=== PATIENT | male | born 1955 | race Hispanic/Latino ===

== ENCOUNTER 2017-11-23 13:31 | Inpatient (IN) | payer MEDICARE, OTHER ==
[2017-11-23] MEDS ORDERED: MORPHINE IV ONE (14:48)
[2017-11-23] MEDS ORDERED: ZOFRAN IV ONE (14:48)
--- NOTE | 2017-11-23 15:02 | Emergency Department Report ---
HPI - General Chief Complaint: Fall Time Seen by Provider: 11/23/17 14:47 - HPI HPI: Room 23 The patient is a 62-year-old male presenting with a chief complaint of right hip pain after a slip and fall. The patient is currently at a hospital under 1013 for "severe agitation." Patient has history of schizophrenia. The patient states he slipped and fell and now has pain in the right hip. Patient denies pain elsewhere. Location: Right hip Duration: Constant today Quality: Pain Severity: Moderate Modifying factors: [see above] Context: [see above] Mode of transportation: [not driving] ED Past Medical Hx - Past Medical History Previous Medical History?: Yes Hx Hypertension: Yes Hx Psychiatric Treatment: Yes (schisophrenia) Hx COPD: Yes Additional medical history: [facility] patient - Family History Family history: no significant - Social History Smoking Status: Current Every Day Smoker Substance Use Type: None ED Review of Systems ROS: Stated complaint: FALL Other details as noted in HPI Musculoskeletal: arthralgia, myalgia Physical Exam - Physical Exam Vital Signs: Vital Signs 11/23/17 13:46 Temperature 98.4 F Pulse Rate 71 Respiratory 18 Rate Blood Pressure 112/54 Blood Pressure 112/54 [Right] O2 Sat by Pulse 100 Oximetry Physical Exam: GENERAL: The patient is well-developed well-nourished male lying on stretcher not appearing to be in acute distress. [] HEENT: Normocephalic. Atraumatic. Extraocular motions are intact. Patient has moist mucous membranes. NECK: Supple. Trachea midline CHEST/LUNGS: Clear to auscultation. There is no respiratory distress noted. HEART/CARDIOVASCULAR: Regular. There is no tachycardia. There is no gallop rub or murmur. 2+ right DP ABDOMEN: Abdomen is soft, nontender. Patient has normal bowel sounds. There is no abdominal distention. SKIN: There is no rash. There is no edema. There is no diaphoresis. NEURO: The patient is awake and alert. The patient is cooperative. The patient has normal speech MUSCULOSKELETAL: Right lower extremity is shortened and externally rotated ED Course Vital Signs 11/23/17 13:46 Temperature 98.4 F Pulse Rate 71 Respiratory 18 Rate Blood Pressure 112/54 Blood Pressure 112/54 [Right] O2 Sat by Pulse 100 Oximetry - Consultations Consultation #1: 11/23/17 15:04 Orthopedic surgery paged 11/23/17 15:[address] Page-requests hospitalist admit the patient ED Medical Decision Making - Lab Data Result diagrams: 11/23/17 14:54 - Radiology Data Radiology results: image reviewed (right hip x-ray) interpreted by me: Right hip [id number] hip fracture - Differential Diagnosis hip fracture Critical care attestation.: If time is entered above; I have spent that time in minutes in the direct care of this critically ill patient, excluding procedure time. ED Disposition Clinical Impression: Closed right hip fracture, Acute right hip pain Disposition: OP ADMIT IP TO THIS HOSP Is pt being admited?: Yes Does the pt Need Aspirin: No Condition: Fair Referrals: PRIMARY CARE,MD [Primary Care Provider] - 3-5 Days Time of Disposition: 15:08 (hospitalist notified (Dr Ibarra))
[2017-11-23 15:07] LABS: Basophils % (Auto) 0.1 % (0.0-1.8); Eosinophils % (Auto) 0.4 % (0.0-4.3); Hematocrit 39.4 % (35.5-45.6); Hemoglobin 13.1 gm/dl (11.8-15.2); Lymphocytes % (Auto) 11.5 % (13.4-35.0); Mean Corpuscular HGB Conc 33 % (32-34); Mean Corpuscular Hemoglobin 31 pg (28-32); Mean Corpuscular Volume 94 fl (84-94); Monocytes # (Auto) 0.7 K/mm3 (0.0-0.8); Platelet Count 230 K/mm3 (140-440); Red Blood Count 4.19 M/mm3 (3.65-5.03); Red Cell Distribution Width 15.6 % (13.2-15.2)
[2017-11-23 15:16] LABS: INR 0.98 (0.87-1.13)
[2017-11-23 15:17] LABS: Partial Thromboplastin Time 28.1 Sec. (24.2-36.6)
[2017-11-23 15:19] LABS: BUN/Creatinine Ratio 37; Blood Urea Nitrogen 26 mg/dL (9-20); Calcium 7.9 mg/dL (8.4-10.2); Hemolysis Index 4
--- NOTE | 2017-11-23 15:30 | XRay Report ---
RIGHT HIP, 2 views: History: Possible broken hip. Comminuted fracture through the intertrochanteric region of the proximal right femur is identified. Fracture lines course through the lesser and greater trochanter. The femoral head remains well seated within the right acetabulum. No pelvic fracture is identified. IMPRESSION: Comminuted right intertrochanteric femur fracture.
[2017-11-23] MEDS ORDERED: TYLENOL PO PRN (21:27)
[2017-11-23] MEDS ORDERED: AMBIEN PO PRN (21:27)
[2017-11-23] MEDS ORDERED: SODIUM CHLORIDE FLUSH SYRINGE 10 ML IV PRN (21:27)
[2017-11-23] MEDS ORDERED: ZOFRAN IV PRN (21:27)
[2017-11-23] MEDS ORDERED: MORPHINE IV PRN (21:27)
--- NOTE | 2017-11-23 21:27 | History and Physical Report ---
History of Present Illness Date of examination: 11/23/17 Date of admission: 11/23/17 Chief complaint: CC Rt Hip pain after fall History of present illness: [place] BAND The patient is a 62-year-old male presenting with a chief complaint of right hip pain after a slip and fall. The patient is currently at [facility] under 1013 for "severe agitation." Patient has history of schizophrenia. The patient states he slipped and fell and now has pain in the right hip. Patient denies pain elsewhere.Pain is 10/10 Past Medical History Previous Medical History?: Yes Hx Hypertension: Yes Hx Psychiatric Treatment: Yes (schisophrenia) Hx COPD: Yes Additional medical history: [place] Family History Family history: no significant fam hx Social History Smoking Status: Current Every Day Smoker Substance Use Type: None Review of Systems ROS: Stated complaint: FALL Other details as noted in HPI Musculoskeletal: arthralgia, myalgia 14 point review of systems done Medications and Allergies Allergies Allergy/AdvReac Type Severity Reaction Status Date / Time benztropine [From Cogentin] AdvReac Rash Verified 11/23/17 13:56 corticorelin ovine triflutate AdvReac Rash Verified 11/23/17 14:00 haloperidol [From Haldol] AdvReac Swelling Verified 11/23/17 14:00 magnesium AdvReac Rash Verified 11/23/17 13:56 Penicillins AdvReac Rash Verified 11/23/17 14:00 phenytoin [From Dilantin] AdvReac Rash Verified 11/23/17 14:00 procaine [From Novocain] AdvReac Rash Verified 11/23/17 14:00 Sulfa (Sulfonamide AdvReac Rash Verified 11/23/17 14:00 Antibiotics) Home Medications Medication Instructions Recorded Confirmed Last Taken Type Albuterol Sulfate [Ventolin Hfa] 2 puff IH Q6H PRN 11/23/17 11/23/17 11/22/17 History Aspirin [Adult Low Dose Aspirin EC] 81 mg PO DAILY 11/23/17 11/23/17 11/23/17 History Cholecalciferol Vit D3 [Vitamin D3] 2,000 unit PO QDAY 11/23/17 11/23/17 History Divalproex Sodium [Depakote] 500 mg PO BID 11/23/17 11/23/17 11/23/17 09:00 History Donepezil HCl 10 mg PO HS 11/23/17 11/23/17 11/22/17 History LORazepam [Ativan] 1 mg PO BID PRN 11/23/17 11/23/17 11/22/17 History Loperamide [Imodium] 2 mg PO Q6H PRN 11/23/17 11/23/17 Unknown History Loratadine [Claritin] 10 mg PO DAILY 11/23/17 11/23/17 Unknown History Mag Hydrox/Aluminum Hyd/Simeth 30 ml PO Q2H PRN 11/23/17 11/23/17 Unknown History [Antacid Anti-Gas Liquid] Magnesium Hydroxide [Milk of 30 ml PO DAILY PRN 11/23/17 11/23/17 Unknown History Magnesia] Megestrol [Megace] 400 mg PO QA 11/23/17 11/23/17 11/23/17 History QUEtiapine [SEROquel] 200 mg PO 11/23/17 11/23/17 11/22/17 History QUEtiapine [SEROquel] 200 mg PO 11/23/17 11/23/17 11/22/17 History Simvastatin [Zocor] 10 mg PO 11/23/17 11/23/17 11/22/17 History Tamsulosin [Flomax] 0.4 mg PO 11/23/17 11/23/17 11/22/17 History Tiotropium [place] [Spiriva] 18 mcg IH QA 11/23/17 11/23/17 11/23/17 History Trihexyphenidyl [Artane Tab] 2 mg PO BID 11/23/17 11/23/17 11/23/17 09:00 History Ziprasidone Mesylate [Geodon] 30 mg IM Q8H PRN 11/23/17 11/23/17 11/19/17 History cloNIDine [Catapres] 0.1 mg PO Q8H PRN 11/23/17 11/23/17 Unknown History diphenhydrAMINE [Benadryl CAP] 25 mg PO Q6HR PRN 11/23/17 11/23/17 Unknown History hydrOXYzine PAMOATE [Vistaril] 25 mg PO Q8H PRN 11/23/17 11/23/17 Unknown History traZODone [Desyrel] 25 mg PO HS PRN 11/23/17 11/23/17 11/22/17 History Exam - Constitutional Vitals: Temp Pulse Resp BP Pulse Ox 98.4 F 72 12 106/60 94 11/23/17 13:46 11/23/17 18:00 11/23/17 19:30 11/23/17 20:00 11/23/17 19:30 General appearance: Present: no acute distress, mild distress, well-nourished - EENT Eyes: Present: PERRL ENT: hearing intact, clear oral mucosa - Neck Neck: Present: supple, normal ROM - Respiratory Respiratory effort: normal Respiratory: bilateral: CTA - Cardiovascular Heart rate: 80 Rhythm: regular Heart Sounds: Present: S1 & S2. Absent: rub, click - Extremities Extremities: no ischemia, pulses intact, pulses symmetrical, No edema, abnormal (Rt hip decreasd ROM abducted and external rotation) Peripheral Pulses: within normal limits - Abdominal General gastrointestinal: Present: soft, non-tender, non-distended, normal bowel sounds Male genitourinary: Present: normal - Rectal Rectal Exam: deferred - Integumentary Integumentary: Present: clear, warm, dry - Musculoskeletal Musculoskeletal: gait normal, strength equal bilaterally - Psychiatric Psychiatric: appropriate mood/affect, intact judgment & insight - Neurologic Neurologic: CNII-XII intact, moves all extremities, other (Cannot ambulate b/c of severe Rt hip pain) - Allied Health Allied health notes reviewed: nursing, case management Results - Labs CBC & Chem 7: 11/24/17 05:23 11/24/17 05:23 Labs: Laboratory Last Values WBC 8.6 K/mm3 (4.5-11.0) 11/23/17 14:54 RBC 4.19 M/mm3 (3.65-5.03) 11/23/17 14:54 Hgb 13.1 gm/dl (11.8-15.2) 11/23/17 14:54 Hct 39.4 % (35.5-45.6) 11/23/17 14:54 MCV 94 fl (84-94) 11/23/17 14:54 MCH 31 pg (28-32) 11/23/17 14:54 MCHC 33 % (32-34) 11/23/17 14:54 RDW 15.6 % (13.2-15.2) H 11/23/17 14:54 Plt Count 230 K/mm3 (140-440) 11/23/17 14:54 Lymph % (Auto) 11.5 % (13.4-35.0) L 11/23/17 14:54 [place] % (Auto) 8.0 % (0.0-7.3) H 11/23/17 14:54 Eos % (Auto) 0.4 % (0.0-4.3) 11/23/17 14:54 Baso % (Auto) 0.1 % (0.0-1.8) 11/23/17 14:54 Lymph # 1.0 K/mm3 (1.2-5.4) L 11/23/17 14:54 [place] # 0.7 K/mm3 (0.0-0.8) 11/23/17 14:54 Eos # 0.0 K/mm3 (0.0-0.4) 11/23/17 14:54 Baso # 0.0 K/mm3 (0.0-0.1) 11/23/17 14:54 Seg Neutrophils % 80.0 % (40.0-70.0) H 11/23/17 14:54 Seg Neutrophils # 6.9 K/mm3 (1.8-7.7) 11/23/17 14:54 PT 13.5 Sec. (12.2-14.9) 11/23/17 14:54 INR 0.98 (0.87-1.13) 11/23/17 14:54 APTT 28.1 Sec. (24.2-36.6) 11/23/17 14:54 Sodium 135 mmol/L (137-145) L 11/23/17 14:54 Potassium 4.5 mmol/L (3.6-5.0) 11/23/17 14:54 Chloride 97.9 mmol/L (98-107) L 11/23/17 14:54 Carbon Dioxide 26 mmol/L (22-30) 11/23/17 14:54 Anion Gap 16 mmol/L 11/23/17 14:54 BUN 26 mg/dL (9-20) H 11/23/17 14:54 Creatinine 0.7 mg/dL (0.8-1.5) L 11/23/17 14:54 Estimated GFR > 60 ml/min 11/23/17 14:54 BUN/Creatinine Ratio 37 % 11/23/17 14:54 Glucose 77 mg/dL (75-100) 11/23/17 14:54 Calcium 7.9 mg/dL (8.4-10.2) L 11/23/17 14:54 Blood Type A NEGATIVE 11/23/17 14:54 Antibody Screen Negative 11/23/17 14:54 - Imaging and Cardiology EKG: report reviewed Assessment and Plan Advance Directives: Yes (Full alma) Plan of care discussed with patient/family: Yes - Patient Problems (1) Closed right hip fracture Current Visit: Yes Status: Acute Qualifiers: Encounter type: initial encounter Qualified Code(s): S72.001A - Fracture of unspecified part of neck of right femur, initial encounter for closed fracture Plan to address problem: For ORIF tomorrow Pain control (2) COPD (chronic obstructive pulmonary disease) Current Visit: Yes Status: Chronic Qualifiers: COPD type: unspecified COPD Qualified Code(s): J44.9 - Chronic obstructive pulmonary disease, unspecified Plan to address problem: Cont Spiriva and Duonebs (3) HTN (hypertension) Current Visit: Yes Status: Chronic Qualifiers: Hypertension type: essential hypertension Qualified Code(s): I10 - Essential (primary) hypertension Plan to address problem: Not on any antihpertensives.Will add if BP runs high (4) BPH (benign prostatic hyperplasia) Current Visit: Yes Status: Chronic Qualifiers: Lower urinary tract symptom presence: symptoms present Plan to address problem: COnt Flomax (5) Malnutrition Current Visit: Yes Status: Chronic Qualifiers: Malnutrition type: protein-calorie malnutrition Protein-calorie malnutrition severity: severe Qualified Code(s): E43 - Unspecified severe protein-calorie malnutrition Plan to address problem: Cont Megace Dietitian consult for supplements (6) Schizophrenia Current Visit: Yes Status: Chronic Qualifiers: Schizophrenia type: unspecified Qualified Code(s): F20.9 - Schizophrenia, unspecified Plan to address problem: Cont antipsychotics (7) DVT prophylaxis Current Visit: Yes Status: Acute Plan to address problem: On Heparin
[2017-11-23] MEDS: SODIUM CHLORIDE FLUSH SYRINGE 10 ML IV SCH (22:01)
[2017-11-24] MEDS: NACL 0.9% 1000 ML 1,000 ML IV SCH ×2 (00:59→14:01)
[2017-11-24] MEDS: PERCOCET 5/325 PO PRN (01:19)
[2017-11-24 06:17] LABS: Basophils % (Auto) 0.1 % (0.0-1.8); Eosinophils % (Auto) 0.2 % (0.0-4.3); Hematocrit 38.7 % (35.5-45.6); Hemoglobin 13.3 gm/dl (11.8-15.2); Lymphocytes % (Auto) 11.9 % (13.4-35.0); Mean Corpuscular HGB Conc 34 % (32-34); Mean Corpuscular Hemoglobin 32 pg (28-32); Mean Corpuscular Volume 92 fl (84-94); Monocytes # (Auto) 0.9 K/mm3 (0.0-0.8); Monocytes % (Auto) 10.4 % (0.0-7.3); Platelet Count 187 K/mm3 (140-440); Red Blood Count 4.19 M/mm3 (3.65-5.03); Red Cell Distribution Width 15.3 % (13.2-15.2)
[2017-11-24 06:45] LABS: Alanine Aminotransferase 27 units/L (7-56); Albumin 3.2 g/dL (3.9-5); BUN/Creatinine Ratio 27; Blood Urea Nitrogen 16 mg/dL (9-20); Calcium 7.7 mg/dL (8.4-10.2); Hemolysis Index 11
[2017-11-24] MEDS ORDERED: PROAIR IH PRN (07:45)
[2017-11-24] MEDS ORDERED: CATAPRES PO PRN (08:30)
[2017-11-24] MEDS ORDERED: BENADRYL PO PRN (08:30)
[2017-11-24] MEDS ORDERED: PROVENTIL IH PRN (09:00)
[2017-11-24] MEDS ORDERED: IMODIUM PO PRN (09:00)
[2017-11-24] MEDS ORDERED: VISTARIL PO PRN (09:00)
--- NOTE | 2017-11-24 09:22 | Progress Note ---
Assessment and Plan Assessment and plan: Right intertrochanteric femur fracture. orthopedic surgeon consulted. Likely surgery tomorrow. Schizophrenia. patient is from [facility]. Continue 1013 status, 1:1 sitter Moderate to severe malnutrition. Dietary consult. Weight loss. Head lice. Permethrin, contact isolation. I discussed with ID Physician. Will consult ID Nurse DVT prophylaxis with Lovenox Discussed with his brother, Dr. Hawley, Physician. History Interval history: Patient with right femur fracture after fall, pain right hip Hospitalist Physical - Physical exam Narrative exam: Gen appearance: Not in acute distress, cachetic HEENT: Normocephalic, atraumatic Neck: supple, no JVD Lungs: Clear to auscultation bilaterally, no crackles , no wheeze Heart: S1 and S2 regular, no murmurs, rubs or gallop Abdomen: soft, non tender, non distended, normal bowel sounds Ext: Tender right hip, no edema, no clubbing, no cyanosis Neuro: Awake,alert, moves all extremities, Psych: has schizophrenia - Constitutional Vitals: Temp Pulse Resp BP Pulse Ox 97.3 F L 66 18 124/75 99 11/24/17 05:09 11/24/17 05:04 11/24/17 05:04 11/24/17 05:04 11/24/17 05:04 General appearance: Present: no acute distress Results - Labs CBC & Chem 7: 11/24/17 05:23 11/24/17 05:23 Labs: Laboratory Last Values WBC 8.3 K/mm3 (4.5-11.0) 11/24/17 05:23 RBC 4.19 M/mm3 (3.65-5.03) 11/24/17 05:23 Hgb 13.3 gm/dl (11.8-15.2) 11/24/17 05:23 Hct 38.7 % (35.5-45.6) 11/24/17 05:23 MCV 92 fl (84-94) 11/24/17 05:23 MCH 32 pg (28-32) 11/24/17 05:23 MCHC 34 % (32-34) 11/24/17 05:23 RDW 15.3 % (13.2-15.2) H 11/24/17 05:23 Plt Count 187 K/mm3 (140-440) 11/24/17 05:23 Lymph % (Auto) 11.9 % (13.4-35.0) L 11/24/17 05:23 [place] % (Auto) 10.4 % (0.0-7.3) H 11/24/17 05:23 Eos % (Auto) 0.2 % (0.0-4.3) 11/24/17 05:23 Baso % (Auto) 0.1 % (0.0-1.8) 11/24/17 05:23 Lymph # 1.0 K/mm3 (1.2-5.4) L 11/24/17 05:23 [place] # 0.9 K/mm3 (0.0-0.8) H 11/24/17 05:23 Eos # 0.0 K/mm3 (0.0-0.4) 11/24/17 05:23 Baso # 0.0 K/mm3 (0.0-0.1) 11/24/17 05:23 Seg Neutrophils % 77.4 % (40.0-70.0) H 11/24/17 05:23 Seg Neutrophils # 6.5 K/mm3 (1.8-7.7) 11/24/17 05:23 PT 13.5 Sec. (12.2-14.9) 11/23/17 14:54 INR 0.98 (0.87-1.13) 11/23/17 14:54 APTT 28.1 Sec. (24.2-36.6) 11/23/17 14:54 Sodium 134 mmol/L (137-145) L 11/24/17 05:23 Potassium 4.2 mmol/L (3.6-5.0) 11/24/17 05:23 Chloride 98.2 mmol/L (98-107) 11/24/17 05:23 Carbon Dioxide 23 mmol/L (22-30) 11/24/17 05:23 Anion Gap 17 mmol/L 11/24/17 05:23 BUN 16 mg/dL (9-20) 11/24/17 05:23 Creatinine 0.6 mg/dL (0.8-1.5) L 11/24/17 05:23 Estimated GFR > 60 ml/min 11/24/17 05:23 BUN/Creatinine Ratio 27 % 11/24/17 05:23 Glucose 94 mg/dL (75-100) 11/24/17 05:23 POC Glucose 106 (70-105) H 11/24/17 09:09 Calcium 7.7 mg/dL (8.4-10.2) L 11/24/17 05:23 Total Bilirubin 0.40 mg/dL (0.1-1.2) 11/24/17 05:23 AST 21 units/L (5-40) 11/24/17 05:23 ALT 27 units/L (7-56) 11/24/17 05:23 Alkaline Phosphatase 61 units/L (35-129) 11/24/17 05:23 Total Protein 5.4 g/dL (6.3-8.2) L 11/24/17 05:23 Albumin 3.2 g/dL (3.9-5) L 11/24/17 05:23 Albumin/Globulin Ratio 1.5 % 11/24/17 05:23 Blood Type A NEGATIVE 11/23/17 14:54 Antibody Screen Negative 11/23/17 14:54
[2017-11-24] MEDS ORDERED: GEODON IM PRN (10:00)
[2017-11-24] MEDS: CLARITIN PO SCH (10:24)
[2017-11-24] MEDS: LOVENOX SUB-Q SCH (10:24)
[2017-11-24] MEDS: SODIUM CHLORIDE FLUSH SYRINGE 10 ML IV SCH (10:29)
[2017-11-24] MEDS: ARTANE PO SCH ×2 (11:06→23:36)
[2017-11-24] MEDS: MEGACE PO SCH (11:07)
[2017-11-24] MEDS: SPIRIVA IH SCH (11:09)
--- NOTE | 2017-11-24 14:24 | Consultation ---
History of Present Illness - [facility] Consult date: 11/24/17 Consult reason: fracture History of present illness: 62-year-old male presenting with a chief complaint of right hip pain after a slip and fall. The patient is currently at [facility] under 1013 for "severe agitation." Patient has history of schizophrenia. The patient states he slipped and fell and now has pain in the right hip. Seen in our ED where xrays taken reveal displaced right intertrochanteric fracture right hip. Medications and Allergies Allergies Allergy/AdvReac Type Severity Reaction Status Date / Time benztropine [From Cogentin] AdvReac Rash Verified 11/23/17 13:56 corticorelin ovine triflutate AdvReac Rash Verified 11/23/17 14:00 haloperidol [From Haldol] AdvReac Swelling Verified 11/23/17 14:00 magnesium AdvReac Rash Verified 11/23/17 13:56 Penicillins AdvReac Rash Verified 11/23/17 14:00 phenytoin [From Dilantin] AdvReac Rash Verified 11/23/17 14:00 procaine [From Novocain] AdvReac Rash Verified 11/23/17 14:00 Sulfa (Sulfonamide AdvReac Rash Verified 11/23/17 14:00 Antibiotics) Home Medications Medication Instructions Recorded Confirmed Last Taken Type Albuterol Sulfate [Ventolin Hfa] 2 puff IH Q6H PRN 11/23/17 11/23/17 11/22/17 History Aspirin [Adult Low Dose Aspirin EC] 81 mg PO DAILY 11/23/17 11/23/17 11/23/17 History Cholecalciferol Vit D3 [Vitamin D3] 2,000 unit PO QDAY 11/23/17 11/23/17 History Divalproex Sodium [Depakote] 500 mg PO BID 11/23/17 11/23/17 11/23/17 09:00 History Donepezil HCl 10 mg PO HS 11/23/17 11/23/17 11/22/17 History LORazepam [Ativan] 1 mg PO BID PRN 11/23/17 11/23/17 11/22/17 History Loperamide [Imodium] 2 mg PO Q6H PRN 11/23/17 11/23/17 Unknown History Loratadine [Claritin] 10 mg PO DAILY 11/23/17 11/23/17 Unknown History Mag Hydrox/Aluminum Hyd/Simeth 30 ml PO Q2H PRN 11/23/17 11/23/17 Unknown History [Antacid Anti-Gas Liquid] Magnesium Hydroxide [Milk of 30 ml PO DAILY PRN 11/23/17 11/23/17 Unknown History Magnesia] Megestrol [Megace] 400 mg PO QAM 11/23/17 11/23/17 11/23/17 History QUEtiapine [SEROquel] 200 mg PO HS 11/23/17 11/23/17 11/22/17 History QUEtiapine [SEROquel] 200 mg PO HS 11/23/17 11/23/17 11/22/17 History Simvastatin [Zocor] 10 mg PO HS 11/23/17 11/23/17 11/22/17 History Tamsulosin [Flomax] 0.4 mg PO HS 11/23/17 11/23/17 11/22/17 History Tiotropium [place] [Spiriva] 18 mcg IH QA 11/23/17 11/23/17 11/23/17 History Trihexyphenidyl [Artane Tab] 2 mg PO BID 11/23/17 11/23/17 11/23/17 09:00 History Ziprasidone Mesylate [Geodon] 30 mg IM Q8H PRN 11/23/17 11/23/17 11/19/17 History cloNIDine [Catapres] 0.1 mg PO Q8H PRN 11/23/17 11/23/17 Unknown History diphenhydrAMINE [Benadryl CAP] 25 mg PO Q6HR PRN 11/23/17 11/23/17 Unknown History hydrOXYzine PAMOATE [Vistaril] 25 mg PO Q8H PRN 11/23/17 11/23/17 Unknown History traZODone [Desyrel] 25 mg PO HS PRN 11/23/17 11/23/17 11/22/17 History Active Meds: Active Medications Acetaminophen (Tylenol) 650 mg PO Q4H PRN PRN Reason: Pain MILD(1-3)/Fever >100.5/[place]OREDO Albuterol (Proventil) 2.5 mg IH Q4HRT PRN PRN Reason: Shortness Of Breath Clonidine HCl (Catapres) 0.1 mg PO Q8H PRN PRN Reason: Blood Pressure Diphenhydramine HCl (Benadryl) 25 mg PO Q6HR PRN PRN Reason: Extrapyramidal Effects Divalproex Sodium (Depakote Dr) 500 mg PO BID [facility] Last Admin: 11/24/17 10:24 Dose: 500 mg Donepezil HCl (Aricept) 10 mg PO HS [facility] Enoxaparin Sodium (Lovenox) 40 mg SUB-Q QDAY [facility] Last Admin: 11/24/17 10:24 Dose: 40 mg Hydromorphone HCl (Dilaudid) 0.5 mg IV Q3H PRN PRN Reason: Pain , Severe (7-10) Hydroxyzine Pamoate (Vistaril) 25 mg PO Q8H PRN PRN Reason: Anxiety Sodium Chloride (Nacl 0.9% 1000 Ml) 1,000 mls @ 100 mls/hr IV DIRECT [facility] Last Admin: 11/24/17 14:01 Dose: 100 mls/hr Loperamide HCl (Imodium) 2 mg PO Q6H PRN PRN Reason: Diarrhea Loratadine (Claritin) 10 mg PO DAILY [facility] Last Admin: 11/24/17 10:24 Dose: 10 mg Lorazepam (Ativan) 1 mg PO BID PRN PRN Reason: Anxiety Megestrol Acetate (Megace) 400 mg PO QAM [facility] Last Admin: 11/24/17 11:07 Dose: 400 mg Morphine Sulfate (Morphine) 2 mg IV Q4H PRN PRN Reason: Pain, Moderate (4-6) Ondansetron HCl (Zofran) 4 mg IV Q8H PRN PRN Reason: Nausea And Vomiting Oxycodone/Acetaminophen (Percocet 5/325) 1 tab PO Q6H PRN PRN Reason: Pain, Moderate (4-6) Last Admin: 11/24/17 01:19 Dose: 1 tab Quetiapine Fumarate (Seroquel) 200 mg PO HS [facility] Sodium Chloride (Sodium Chloride Flush Syringe 10 Ml) 10 ml IV BID [facility] Last Admin: 11/24/17 10:29 Dose: 10 ml Sodium Chloride (Sodium Chloride Flush Syringe 10 Ml) 10 ml IV PRN PRN PRN Reason: LINE FLUSH Tamsulosin HCl (Flomax) 0.4 mg PO [facility] Tiotropium [place] (Spiriva) 1 puff IH QAM [facility] Last Admin: 11/24/17 11:09 Dose: 1 puff Trazodone HCl (Desyrel) 25 mg PO HS PRN PRN Reason: Sleep Trihexyphenidyl HCl (Artane) 2 mg PO BID [facility] Last Admin: 11/24/17 11:06 Dose: 2 mg Ziprasidone (Geodon) 30 mg IM Q8H PRN PRN Reason: Agitation Zolpidem Tartrate (Ambien) 5 mg PO QHS PRN PRN Reason: Insomnia Last Admin: 11/24/17 01:19 Dose: 5 mg Physical Examination - Physical exam Narrative exam: right hip - tender at groin, decreased active ROM, shortened external rotated, good capillary Assessment and Plan Displaced right intertrochanteric fx right hip recommend operative fixation with Intramedullary nail, discussed treatment options with patient's brother, Maynor Hawley in [place] who agrees with our recommendations
[2017-11-24] MEDS ORDERED: ACTICIN TP ONE ×2 (18:00→22:00)
--- NOTE | 2017-11-24 18:34 | XRay Report ---
FINAL REPORT PROCEDURE: XR CHEST ROUTINE 2V TECHNIQUE: PA and lateral chest radiographs were obtained. CPT 26209 HISTORY: Preoperative. Hyponatremia. COMPARISON: No prior studies are available for comparison. FINDINGS: Heart: Normal. Mediastinum/Vessels: Normal. Lungs/Pleural space: Moderate hyperinflation and emphysema. Bony thorax: Left 8th-10th rib fractures. Mild osteopenia. Mild degenerative changes of the spine. Other: IMPRESSION: Moderate hyperinflation and emphysema.
[2017-11-24] MEDS ORDERED: DESYREL PO PRN (22:00)
[2017-11-24] MEDS: ARICEPT PO SCH (23:35)
[2017-11-24] MEDS: FLOMAX PO SCH (23:36)
[2017-11-24] MEDS: DILAUDID IV PRN (23:38)
[2017-11-25] MEDS: DILAUDID IV PRN (05:34)
[2017-11-25] MEDS: SODIUM CHLORIDE FLUSH SYRINGE 10 ML IV SCH ×3 (05:35→21:30)
--- NOTE | 2017-11-25 08:29 | Progress Note ---
Assessment and Plan Assessment and plan: Right intertrochanteric femur fracture. Orthopedic surgeon consulted. Surgery postponed to tomorrow because he is getting Permethrin for head lice. Schizophrenia. He is from [facility]. Continue 1013 status, 1:1 sitter Moderate to severe malnutrition. Dietary consult. Weight loss. Will need outpatient follow up. Head lice. Permethrin, contact isolation. I discussed with ID Physician. Will consult ID Nurse DVT prophylaxis with Lovenox Discussed with his brother, Dr. Hawley, Physician yesterday History Interval history: Patient with right femur fracture after fall, pain right hip Diagnosed with head lice yesterday Hospitalist Physical - Physical exam Narrative exam: Gen appearance: Not in acute distress, cachetic HEENT: Normocephalic, atraumatic Neck: supple, no JVD Lungs: Clear to auscultation bilaterally, no crackles , no wheeze Heart: S1 and S2 regular, no murmurs, rubs or gallop Abdomen: soft, non tender, non distended, normal bowel sounds Ext: Tender right hip, no edema, no clubbing, no cyanosis Neuro: Awake,alert, moves all extremities, Psych: has schizophrenia - Constitutional Vitals: Temp Pulse Resp BP Pulse Ox 97.9 F 91 H 18 148/81 100 11/25/17 07:46 11/25/17 07:46 11/25/17 07:46 11/25/17 07:46 11/25/17 07:46 General appearance: Present: no acute distress Results - Labs CBC & Chem 7: 11/24/17 05:23 11/24/17 05:23 Labs: Laboratory Last Values WBC 8.3 K/mm3 (4.5-11.0) 11/24/17 05:23 RBC 4.19 M/mm3 (3.65-5.03) 11/24/17 05:23 Hgb 13.3 gm/dl (11.8-15.2) 11/24/17 05:23 Hct 38.7 % (35.5-45.6) 11/24/17 05:23 MCV 92 fl (84-94) 11/24/17 05:23 MCH 32 pg (28-32) 11/24/17 05:23 MCHC 34 % (32-34) 11/24/17 05:23 RDW 15.3 % (13.2-15.2) H 11/24/17 05:23 Plt Count 187 K/mm3 (140-440) 11/24/17 05:23 Lymph % (Auto) 11.9 % (13.4-35.0) L 11/24/17 05:23 [place] % (Auto) 10.4 % (0.0-7.3) H 11/24/17 05:23 Eos % (Auto) 0.2 % (0.0-4.3) 11/24/17 05:23 Baso % (Auto) 0.1 % (0.0-1.8) 11/24/17 05:23 Lymph # 1.0 K/mm3 (1.2-5.4) L 11/24/17 05:23 [place] # 0.9 K/mm3 (0.0-0.8) H 11/24/17 05:23 Eos # 0.0 K/mm3 (0.0-0.4) 11/24/17 05:23 Baso # 0.0 K/mm3 (0.0-0.1) 11/24/17 05:23 Seg Neutrophils % 77.4 % (40.0-70.0) H 11/24/17 05:23 Seg Neutrophils # 6.5 K/mm3 (1.8-7.7) 11/24/17 05:23 PT 13.5 Sec. (12.2-14.9) 11/23/17 14:54 INR 0.98 (0.87-1.13) 11/23/17 14:54 APTT 28.1 Sec. (24.2-36.6) 11/23/17 14:54 Sodium 134 mmol/L (137-145) L 11/24/17 05:23 Potassium 4.2 mmol/L (3.6-5.0) 11/24/17 05:23 Chloride 98.2 mmol/L (98-107) 11/24/17 05:23 Carbon Dioxide 23 mmol/L (22-30) 11/24/17 05:23 Anion Gap 17 mmol/L 11/24/17 05:23 BUN 16 mg/dL (9-20) 11/24/17 05:23 Creatinine 0.6 mg/dL (0.8-1.5) L 11/24/17 05:23 Estimated GFR > 60 ml/min 11/24/17 05:23 BUN/Creatinine Ratio 27 % 11/24/17 05:23 Glucose 94 mg/dL (75-100) 11/24/17 05:23 POC Glucose 137 (70-105) H 11/24/17 12:22 Calcium 7.7 mg/dL (8.4-10.2) L 11/24/17 05:23 Total Bilirubin 0.40 mg/dL (0.1-1.2) 11/24/17 05:23 AST 21 units/L (5-40) 11/24/17 05:23 ALT 27 units/L (7-56) 11/24/17 05:23 Alkaline Phosphatase 61 units/L (35-129) 11/24/17 05:23 Total Protein 5.4 g/dL (6.3-8.2) L 11/24/17 05:23 Albumin 3.2 g/dL (3.9-5) L 11/24/17 05:23 Albumin/Globulin Ratio 1.5 % 11/24/17 05:23 Blood Type A NEGATIVE 11/23/17 14:54 Antibody Screen Negative 11/23/17 14:54
[2017-11-25] MEDS: SPIRIVA IH SCH (10:33)
[2017-11-25] MEDS: LOVENOX SUB-Q SCH (11:03)
[2017-11-25] MEDS: MEGACE PO SCH (11:03)
[2017-11-25] MEDS: ARTANE PO SCH ×2 (11:04→21:28)
[2017-11-25] MEDS: CLARITIN PO SCH (11:04)
[2017-11-25] MEDS: NACL 0.9% 1000 ML 1,000 ML IV SCH (14:30)
--- NOTE | 2017-11-25 14:38 | Anesthesia Consultation ---
Anesthesia Consult and Med Hx Date of service: 11/26/17 - Airway Anesthetic Teeth Evaluation: Good (Unable to asses pt not co-operating) ROM Head & Neck: Adequate (Unable to asses pt not co-operating) Mental/Hyoid Distance: Adequate (Unable to asses pt not co-operating) Mallampati Class: Class I (Unable to asses pt not co-operating) Intubation Access Assessment: Good - Pulmonary Exam CTA: Yes (Few Crackles noted on bilateral bases) - Cardiac Exam Cardiac Exam: No Murmur - Pre-Operative Health Status ASA Pre-Surgery Classification: ASA3 Proposed Anesthetic Plan: General - Pulmonary Hx Smoking: No Hx Asthma: No Hx Respiratory Symptoms: No SOB: No COPD: Yes Home Oxygen Therapy: No Hx Pneumonia: No Hx Sleep Apnea: No - Cardiovascular System Hx Hypertension: Yes Hx Heart Attack/AMI: No Hx Pacemaker: No Hx Internal Defibrillator: No - Central Nervous System Hx Seizures: No Hx Psychiatric Problems: Yes (Patient is not oriented X3) - Gastrointestinal Hx Ulcer: No Hx Gastroesophageal Reflux Disease: No - Endocrine Hx Renal Disease: No Hx End Stage Renal Disease: No Hx Cirrhosis: No Hx Liver Disease: No Hx Insulin Dependent Diabetes: No Hx Non-Insulin Dependent Diabetes: No Hx Thyroid Disease: No Hx Hypothyroidism: No Hx Hyperthyroidism: No - Hematic Hx Anemia: No Hx Sickle Cell Disease: No - Other Systems Hx Alcohol Use: No Hx Substance Use: No Hx Cancer: No Hx Obesity: No - Additional Comments Anesthesia Medical History Comments: PT is ASA III history of HTN, COPD, and Psychiatric schizophrenia, unable to do an airway assesment as patient is not oriented and cooperating. Patient is also currently being treated for head lice. Patient may require more than average anesthesia requirements granted his pyschiatric history. consent was obtained from Brother Dr Maynor [email or web address]
[2017-11-25] MEDS: FLOMAX PO SCH (21:28)
[2017-11-25] MEDS: ARICEPT PO SCH (21:28)
[2017-11-26] MEDS ORDERED: DILAUDID IV PRN (07:14)
--- NOTE | 2017-11-26 07:14 | Anesthesia Day of Surgery ---
Anesthesia Day of Surgery - Day of Surgery Patient Examined: Yes Patient H&P Reviewed: Yes Patient is NPO: Yes
[2017-11-26] MEDS ORDERED: SUBLIMAZE IV NR (07:30)
[2017-11-26] MEDS ORDERED: SUBLIMAZE ONE (07:44)
[2017-11-26] MEDS ORDERED: XYLOCAINE MPF 2% ONE (07:44)
[2017-11-26] MEDS ORDERED: DIPRIVAN 10 MG/ML IV ONE (07:45)
[2017-11-26] MEDS ORDERED: NACL 0.9% IR ONE (07:56)
[2017-11-26] MEDS ORDERED: VANCOMYCIN/NS 1 GM/250 ML 1 GM/250 ML BAG IV SCH (08:00)
[2017-11-26] MEDS ORDERED: VERSED ONE (08:01)
[2017-11-26] MEDS ORDERED: ePHEDrine SULFATE ONE (08:28)
[2017-11-26] MEDS ORDERED: NEO SYNEPHRINE/NS Syringe(OR USE) IV ONE (08:50)
[2017-11-26] MEDS ORDERED: ZEMURON IV ONE (08:50)
[2017-11-26] MEDS ORDERED: NACL 0.9% 100 ML ONE (09:12)
[2017-11-26] MEDS: SODIUM CHLORIDE FLUSH SYRINGE 10 ML IV SCH (10:06)
[2017-11-26] MEDS: SPIRIVA IH SCH (11:56)
[2017-11-26] MEDS: ARTANE PO SCH ×2 (11:56→22:12)
[2017-11-26] MEDS: MEGACE PO SCH (11:56)
[2017-11-26] MEDS: LOVENOX SUB-Q SCH (11:57)
[2017-11-26] MEDS: CLARITIN PO SCH (12:07)
--- NOTE | 2017-11-26 13:29 | Procedure Note ---
Date of procedure: 11/26/17 Pre-op diagnosis: displaced right intertrochanteric hip fracture Post-op diagnosis: same Procedure: Closed reduction insertion of intramedullary nail right femur Anesthesia: GETA Surgeon: JOSE BOGGS Estimated blood loss: 50-100ml Pathology: none Condition: stable Disposition: PACU
--- NOTE | 2017-11-26 13:31 | Post Anesthesia Evaluation ---
- Post Anesthesia Evaluation Patient Participated: Yes Airway Patent: Yes Stable Respiratory Function: Yes Nausea/Vomiting: No Temp > 96.8F: Yes Pain Manageable: Yes Adequeate Hydration: Yes Anesthesia Complications: No
--- NOTE | 2017-11-26 13:37 | Progress Note ---
Assessment and Plan Assessment and plan: Right intertrochanteric femur fracture. Orthopedic surgeon consulted. Surgery - intramedullary nail right femur done today by Dr. Page. Schizophrenia. He is from [facility]. Continue 1013 status, 1:1 sitter Moderate to severe malnutrition. Dietary consulted. Weight loss. Will need outpatient follow up. Lice. Permethrin. Contact isolation. I discussed with ID Physician. Also consulted ID Nurse DVT prophylaxis with Lovenox Discussed with his brother, Dr. Hawley, Physician few days ago. History Interval history: Patient with right femur fracture after fall, Had surgery today Diagnosed with lice Hospitalist Physical - Physical exam Narrative exam: Gen appearance: Not in acute distress, cachetic HEENT: Normocephalic, atraumatic Neck: supple, no JVD Lungs: Clear to auscultation bilaterally, no crackles , no wheeze Heart: S1 and S2 regular, no murmurs, rubs or gallop Abdomen: soft, non tender, non distended, normal bowel sounds Ext: Tender right hip, no edema, no clubbing, no cyanosis Neuro: Awake,alert, moves all extremities, Psych: Has schizophrenia - Constitutional Vitals: Temp Pulse Resp BP Pulse Ox 98.1 F 82 15 103/63 97 11/26/17 09:40 11/26/17 10:15 11/26/17 10:15 11/26/17 10:15 11/26/17 10:15 General appearance: Present: no acute distress Results - Labs CBC & Chem 7: 11/24/17 05:23 11/24/17 05:23 Labs: Laboratory Last Values WBC 8.3 K/mm3 (4.5-11.0) 11/24/17 05:23 RBC 4.19 M/mm3 (3.65-5.03) 11/24/17 05:23 Hgb 13.3 gm/dl (11.8-15.2) 11/24/17 05:23 Hct 38.7 % (35.5-45.6) 11/24/17 05:23 MCV 92 fl (84-94) 11/24/17 05:23 MCH 32 pg (28-32) 11/24/17 05:23 MCHC 34 % (32-34) 11/24/17 05:23 RDW 15.3 % (13.2-15.2) H 11/24/17 05:23 Plt Count 187 K/mm3 (140-440) 11/24/17 05:23 Lymph % (Auto) 11.9 % (13.4-35.0) L 11/24/17 05:23 [place] % (Auto) 10.4 % (0.0-7.3) H 11/24/17 05:23 Eos % (Auto) 0.2 % (0.0-4.3) 11/24/17 05:23 Baso % (Auto) 0.1 % (0.0-1.8) 11/24/17 05:23 Lymph # 1.0 K/mm3 (1.2-5.4) L 11/24/17 05:23 [place] # 0.9 K/mm3 (0.0-0.8) H 11/24/17 05:23 Eos # 0.0 K/mm3 (0.0-0.4) 11/24/17 05:23 Baso # 0.0 K/mm3 (0.0-0.1) 11/24/17 05:23 Seg Neutrophils % 77.4 % (40.0-70.0) H 11/24/17 05:23 Seg Neutrophils # 6.5 K/mm3 (1.8-7.7) 11/24/17 05:23 PT 13.5 Sec. (12.2-14.9) 11/23/17 14:54 INR 0.98 (0.87-1.13) 11/23/17 14:54 APTT 28.1 Sec. (24.2-36.6) 11/23/17 14:54 Sodium 134 mmol/L (137-145) L 11/24/17 05:23 Potassium 4.2 mmol/L (3.6-5.0) 11/24/17 05:23 Chloride 98.2 mmol/L (98-107) 11/24/17 05:23 Carbon Dioxide 23 mmol/L (22-30) 11/24/17 05:23 Anion Gap 17 mmol/L 11/24/17 05:23 BUN 16 mg/dL (9-20) 11/24/17 05:23 Creatinine 0.6 mg/dL (0.8-1.5) L 11/24/17 05:23 Estimated GFR > 60 ml/min 11/24/17 05:23 BUN/Creatinine Ratio 27 % 11/24/17 05:23 Glucose 94 mg/dL (75-100) 11/24/17 05:23 POC Glucose 137 (70-105) H 11/24/17 12:22 Calcium 7.7 mg/dL (8.4-10.2) L 11/24/17 05:23 Total Bilirubin 0.40 mg/dL (0.1-1.2) 11/24/17 05:23 AST 21 units/L (5-40) 11/24/17 05:23 ALT 27 units/L (7-56) 11/24/17 05:23 Alkaline Phosphatase 61 units/L (35-129) 11/24/17 05:23 Total Protein 5.4 g/dL (6.3-8.2) L 11/24/17 05:23 Albumin 3.2 g/dL (3.9-5) L 11/24/17 05:23 Albumin/Globulin Ratio 1.5 % 11/24/17 05:23 Blood Type A NEGATIVE 11/23/17 14:54 Antibody Screen Negative 11/23/17 14:54
--- NOTE | 2017-11-26 13:56 | XRay Report ---
UNILATERAL LEFT RIB RADIOGRAPHS INDICATION: Rib fractures on CXR. COMPARISON: 11/24/2017 CXR. FINDINGS: Frontal/oblique left rib radiographs, 2 images, suggests left eighth, ninth and questionably tenth rib subtle deformities, of indeterminate age, though possibly old. Clear imaged lungs. Cholecystectomy clips. Moderate to large left hemiabdomen/splenic flexure stool/constipation. CONCLUSION: Left lower rib deformities, of indeterminate age, though likely old, as described. Please correlate clinically and with more remote chest imaging, if available from an outside institution. Thank you for the opportunity to participate in this patient's care.
--- NOTE | 2017-11-26 15:18 | XRay Report ---
INTRAOPERATIVE RIGHT FEMUR RADIOGRAPHS INDICATION: Right femur fracture repair. COMPARISON: 11/23/2017. FINDINGS: Intraoperative fluoroscopic guidance provided. Fluoroscopy time 1.1 minute. 4 submitted images demonstrate right Zickel nail placement, anchored by a single distal threaded screw. Left femoral compression orthopedic screw and plate also again seen. CONCLUSION: Intraoperative fluoroscopic guidance provided for right intertrochanteric fracture stabilization, as described. Thank you for the opportunity to participate in this patient's care.
[2017-11-26] MEDS ORDERED: ACTICIN TP ONE (16:34)
[2017-11-26] MEDS ORDERED: MIRALAX 3350 PO PRN (18:49)
[2017-11-26] MEDS: ARICEPT PO SCH (22:11)
[2017-11-26] MEDS: FLOMAX PO SCH (22:12)
[2017-11-26] MEDS: COLACE PO SCH (22:12)
[2017-11-27] MEDS: SODIUM CHLORIDE FLUSH SYRINGE 10 ML IV SCH ×3 (04:54→21:33)
[2017-11-27] MEDS: CLARITIN PO SCH (09:50)
[2017-11-27] MEDS: MEGACE PO SCH (09:50)
[2017-11-27] MEDS: LOVENOX SUB-Q SCH (09:50)
[2017-11-27] MEDS: COLACE PO SCH ×2 (09:50→21:31)
[2017-11-27] MEDS: ARTANE PO SCH ×2 (09:51→21:31)
[2017-11-27] MEDS: NACL 0.9% 1000 ML 1,000 ML IV SCH ×2 (09:55→21:34)
[2017-11-27] MEDS: SPIRIVA IH SCH (10:24)
--- NOTE | 2017-11-27 11:35 | Progress Note ---
Assessment and Plan Assessment and plan: Right intertrochanteric femur fracture. Orthopedic surgeon consulted. Surgery - intramedullary nail right femur done by Dr. Page on 11/26/17. Schizophrenia. He is from [facility]. Continue 1013 status, 1:1 sitter Moderate to severe malnutrition. Dietary consulted. Weight loss. Will need outpatient follow up. Body Lice seen on hair on head, pubic hair, sheets. Permethrin. Contact isolation. I discussed with ID Physician. Also consulted ID Nurse DVT prophylaxis with Lovenox Discussed with his brother, Dr. Hawley, Physician few days ago. History Interval history: Patient with right femur fracture after fall, Had surgery 11/26 Diagnosed with lice Hospitalist Physical - Physical exam Narrative exam: Gen appearance: Not in acute distress, cachetic HEENT: Normocephalic, atraumatic Neck: supple, no JVD Lungs: Clear to auscultation bilaterally, no crackles , no wheeze Heart: S1 and S2 regular, no murmurs, rubs or gallop Abdomen: soft, non tender, non distended, normal bowel sounds Ext: Tender right hip,dressing over righthip, no edema, no clubbing, no cyanosis Neuro: Awake,alert, moves all extremities, Psych: Has schizophrenia - Constitutional Vitals: Temp Pulse Resp BP Pulse Ox 98.6 F 87 18 116/69 98 11/27/17 08:09 11/27/17 08:09 11/27/17 08:09 11/27/17 08:09 11/27/17 10:24 General appearance: Present: no acute distress Results - Labs CBC & Chem 7: 11/28/17 04:13 11/28/17 04:13 Labs: Laboratory Last Values WBC 8.3 K/mm3 (4.5-11.0) 11/24/17 05:23 RBC 4.19 M/mm3 (3.65-5.03) 11/24/17 05:23 Hgb 13.3 gm/dl (11.8-15.2) 11/24/17 05:23 Hct 38.7 % (35.5-45.6) 11/24/17 05:23 MCV 92 fl (84-94) 11/24/17 05:23 MCH 32 pg (28-32) 11/24/17 05:23 MCHC 34 % (32-34) 11/24/17 05:23 RDW 15.3 % (13.2-15.2) H 11/24/17 05:23 Plt Count 187 K/mm3 (140-440) 11/24/17 05:23 Lymph % (Auto) 11.9 % (13.4-35.0) L 11/24/17 05:23 [place] % (Auto) 10.4 % (0.0-7.3) H 11/24/17 05:23 Eos % (Auto) 0.2 % (0.0-4.3) 11/24/17 05:23 Baso % (Auto) 0.1 % (0.0-1.8) 11/24/17 05:23 Lymph # 1.0 K/mm3 (1.2-5.4) L 11/24/17 05:23 [place] # 0.9 K/mm3 (0.0-0.8) H 11/24/17 05:23 Eos # 0.0 K/mm3 (0.0-0.4) 11/24/17 05:23 Baso # 0.0 K/mm3 (0.0-0.1) 11/24/17 05:23 Seg Neutrophils % 77.4 % (40.0-70.0) H 11/24/17 05:23 Seg Neutrophils # 6.5 K/mm3 (1.8-7.7) 11/24/17 05:23 PT 13.5 Sec. (12.2-14.9) 11/23/17 14:54 INR 0.98 (0.87-1.13) 11/23/17 14:54 APTT 28.1 Sec. (24.2-36.6) 11/23/17 14:54 Sodium 134 mmol/L (137-145) L 11/24/17 05:23 Potassium 4.2 mmol/L (3.6-5.0) 11/24/17 05:23 Chloride 98.2 mmol/L (98-107) 11/24/17 05:23 Carbon Dioxide 23 mmol/L (22-30) 11/24/17 05:23 Anion Gap 17 mmol/L 11/24/17 05:23 BUN 16 mg/dL (9-20) 11/24/17 05:23 Creatinine 0.6 mg/dL (0.8-1.5) L 11/24/17 05:23 Estimated GFR > 60 ml/min 11/24/17 05:23 BUN/Creatinine Ratio 27 % 11/24/17 05:23 Glucose 94 mg/dL (75-100) 11/24/17 05:23 POC Glucose 137 (70-105) H 11/24/17 12:22 Calcium 7.7 mg/dL (8.4-10.2) L 11/24/17 05:23 Total Bilirubin 0.40 mg/dL (0.1-1.2) 11/24/17 05:23 AST 21 units/L (5-40) 11/24/17 05:23 ALT 27 units/L (7-56) 11/24/17 05:23 Alkaline Phosphatase 61 units/L (35-129) 11/24/17 05:23 Total Protein 5.4 g/dL (6.3-8.2) L 11/24/17 05:23 Albumin 3.2 g/dL (3.9-5) L 11/24/17 05:23 Albumin/Globulin Ratio 1.5 % 11/24/17 05:23 Blood Type A NEGATIVE 11/23/17 14:54 Antibody Screen Negative 11/23/17 14:54
[2017-11-27] MEDS: ARICEPT PO SCH (21:31)
[2017-11-27] MEDS: FLOMAX PO SCH (21:31)
[2017-11-27] MEDS: PERCOCET 5/325 PO PRN (21:31)
[2017-11-28 04:41] LABS: Hematocrit 29.7 % (35.5-45.6); Mean Corpuscular HGB Conc 34 % (32-34); Mean Corpuscular Hemoglobin 32 pg (28-32); Mean Corpuscular Volume 93 fl (84-94); Platelet Count 244 K/mm3 (140-440); Red Blood Count 3.19 M/mm3 (3.65-5.03); Red Cell Distribution Width 15.3 % (13.2-15.2)
[2017-11-28 04:57] LABS: BUN/Creatinine Ratio 32; Blood Urea Nitrogen 16 mg/dL (9-20); Calcium 7.2 mg/dL (8.4-10.2); Hemolysis Index 6
[2017-11-28] MEDS: SPIRIVA IH SCH (11:00)
[2017-11-28] MEDS: CLARITIN PO SCH (11:20)
[2017-11-28] MEDS: LOVENOX SUB-Q SCH (11:20)
[2017-11-28] MEDS: ARTANE PO SCH ×2 (11:22→22:15)
[2017-11-28] MEDS: COLACE PO SCH ×2 (11:25→22:15)
--- NOTE | 2017-11-28 12:31 | Progress Note ---
Assessment and Plan Assessment and plan: Right intertrochanteric femur fracture. Orthopedic surgeon consulted. Surgery - intramedullary nail right femur done by Dr. Page on 11/26/17. Pain is under control Schizophrenia. He is from [facility]. Continue 1013 status, 1:1 sitter Moderate to severe malnutrition. Dietary consulted. Weight loss. Will need outpatient follow up. Body Lice seen on hair on head, pubic hair, sheets. Permethrin. Contact isolation. I discussed with ID Physician. Also consulted ID Nurse DVT prophylaxis with Lovenox Discussed with his brother, Dr. Hawley, Physician few days ago. History Interval history: Patient with right femur fracture after fall, Had surgery 2 days ago on 11/26 Diagnosed with lice Hospitalist Physical - Physical exam Narrative exam: Gen appearance: Not in acute distress, cachetic HEENT: Normocephalic, atraumatic Neck: supple, no JVD Lungs: Clear to auscultation bilaterally, no crackles , no wheeze Heart: S1 and S2 regular, no murmurs, rubs or gallop Abdomen: soft, non tender, non distended, normal bowel sounds Ext: Tender right hip,dressing over right hip, no clubbing, no cyanosis Neuro: Awake,alert, moves all extremities, Psych: Has schizophrenia - Constitutional Vitals: Temp Pulse Resp BP Pulse Ox 98.1 F 106 H 16 98/64 92 11/28/17 08:00 11/28/17 11:06 11/28/17 11:06 11/28/17 08:00 11/28/17 08:00 General appearance: Present: no acute distress Results - Labs CBC & Chem 7: 11/28/17 04:13 11/28/17 04:13 Labs: Laboratory Last Values WBC 7.0 K/mm3 (4.5-11.0) 11/28/17 04:13 RBC 3.19 M/mm3 (3.65-5.03) L 11/28/17 04:13 Hgb 10.0 gm/dl (11.8-15.2) L 11/28/17 04:13 Hct 29.7 % (35.5-45.6) L 11/28/17 04:13 MCV 93 fl (84-94) 11/28/17 04:13 MCH 32 pg (28-32) 11/28/17 04:13 MCHC 34 % (32-34) 11/28/17 04:13 RDW 15.3 % (13.2-15.2) H 11/28/17 04:13 Plt Count 244 K/mm3 (140-440) 11/28/17 04:13 Lymph % (Auto) 11.9 % (13.4-35.0) L 11/24/17 05:23 [place] % (Auto) 10.4 % (0.0-7.3) H 11/24/17 05:23 Eos % (Auto) 0.2 % (0.0-4.3) 11/24/17 05:23 Baso % (Auto) 0.1 % (0.0-1.8) 11/24/17 05:23 Lymph # 1.0 K/mm3 (1.2-5.4) L 11/24/17 05:23 [place] # 0.9 K/mm3 (0.0-0.8) H 11/24/17 05:23 Eos # 0.0 K/mm3 (0.0-0.4) 11/24/17 05:23 Baso # 0.0 K/mm3 (0.0-0.1) 11/24/17 05:23 Seg Neutrophils % 77.4 % (40.0-70.0) H 11/24/17 05:23 Seg Neutrophils # 6.5 K/mm3 (1.8-7.7) 11/24/17 05:23 PT 13.5 Sec. (12.2-14.9) 11/23/17 14:54 INR 0.98 (0.87-1.13) 11/23/17 14:54 APTT 28.1 Sec. (24.2-36.6) 11/23/17 14:54 Sodium 137 mmol/L (137-145) 11/28/17 04:13 Potassium 4.0 mmol/L (3.6-5.0) 11/28/17 04:13 Chloride 103.9 mmol/L (98-107) 11/28/17 04:13 Carbon Dioxide 21 mmol/L (22-30) L 11/28/17 04:13 Anion Gap 16 mmol/L 11/28/17 04:13 BUN 16 mg/dL (9-20) 11/28/17 04:13 Creatinine 0.5 mg/dL (0.8-1.5) L 11/28/17 04:13 Estimated GFR > 60 ml/min 11/28/17 04:13 BUN/Creatinine Ratio 32 % 11/28/17 04:13 Glucose 102 mg/dL (75-100) H 11/28/17 04:13 POC Glucose 137 (70-105) H 11/24/17 12:22 Calcium 7.2 mg/dL (8.4-10.2) L 11/28/17 04:13 Total Bilirubin 0.40 mg/dL (0.1-1.2) 11/24/17 05:23 AST 21 units/L (5-40) 11/24/17 05:23 ALT 27 units/L (7-56) 11/24/17 05:23 Alkaline Phosphatase 61 units/L (35-129) 11/24/17 05:23 Total Protein 5.4 g/dL (6.3-8.2) L 11/24/17 05:23 Albumin 3.2 g/dL (3.9-5) L 11/24/17 05:23 Albumin/Globulin Ratio 1.5 % 11/24/17 05:23 Blood Type A NEGATIVE 11/23/17 14:54 Antibody Screen Negative 11/23/17 14:54
[2017-11-28] MEDS: MEGACE PO SCH (14:27)
[2017-11-28] MEDS: SODIUM CHLORIDE FLUSH SYRINGE 10 ML IV SCH ×2 (14:30→22:15)
[2017-11-28] MEDS: NACL 0.9% 1000 ML 1,000 ML IV SCH (18:00)
[2017-11-28] MEDS: ARICEPT PO SCH (22:14)
[2017-11-28] MEDS: FLOMAX PO SCH (22:14)
[2017-11-29 08:37] LABS: Hematocrit 31.5 % (35.5-45.6); Hemoglobin 10.7 gm/dl (11.8-15.2); Mean Corpuscular HGB Conc 34 % (32-34); Mean Corpuscular Hemoglobin 32 pg (28-32); Mean Corpuscular Volume 94 fl (84-94); Platelet Count 285 K/mm3 (140-440); Red Blood Count 3.37 M/mm3 (3.65-5.03); Red Cell Distribution Width 15.6 % (13.2-15.2)
[2017-11-29] MEDS: SPIRIVA IH SCH (09:08)
--- NOTE | 2017-11-29 11:25 | Progress Note ---
Assessment and Plan Assessment and plan: Right intertrochanteric femur fracture. Orthopedic surgeon consulted. Surgery - intramedullary nail right femur done by Dr. Page on 11/26/17. Pain is under control Physical therapy ordered Schizophrenia. He is from [facility]. Continue 1013 status, 1:1 sitter . Psych reconsulted Moderate to severe malnutrition. Dietary consulted. Weight loss. Will need outpatient follow up. Body Lice seen on hair on head, pubic hair, sheets. Permethrin. Contact isolation. I discussed with ID Physician. Also consulted ID Nurse DVT prophylaxis with Lovenox Discussed with his brother, Dr. Hawley, Physician few days ago. Discussed with case management. History Interval history: Patient with right femur fracture after fall, Had surgery 3 days ago on 11/26 Diagnosed with body lice, treated with permethrin Hospitalist Physical - Physical exam Narrative exam: Gen appearance: Not in acute distress, cachetic HEENT: Normocephalic, atraumatic Neck: supple, no JVD Lungs: Clear to auscultation bilaterally, no crackles , no wheeze Heart: S1 and S2 regular, no murmurs, rubs or gallop Abdomen: soft, non tender, non distended, normal bowel sounds Ext: Tender right hip,dressing over right hip, no clubbing, no cyanosis Neuro: Awake,alert, moves all extremities, Psych: Has schizophrenia - Constitutional Vitals: Temp Pulse Resp BP Pulse Ox 98.2 F 79 16 121/66 99 11/29/17 07:38 11/29/17 09:08 11/29/17 09:08 11/29/17 07:38 11/29/17 07:38 General appearance: Present: no acute distress Results - Labs CBC & Chem 7: 11/29/17 08:19 11/28/17 04:13 Labs: Laboratory Last Values WBC 7.4 K/mm3 (4.5-11.0) 11/29/17 08:19 RBC 3.37 M/mm3 (3.65-5.03) L 11/29/17 08:19 Hgb 10.7 gm/dl (11.8-15.2) L 11/29/17 08:19 Hct 31.5 % (35.5-45.6) L 11/29/17 08:19 MCV 94 fl (84-94) 11/29/17 08:19 MCH 32 pg (28-32) 11/29/17 08:19 MCHC 34 % (32-34) 11/29/17 08:19 RDW 15.6 % (13.2-15.2) H 11/29/17 08:19 Plt Count 285 K/mm3 (140-440) 11/29/17 08:19 Lymph % (Auto) 11.9 % (13.4-35.0) L 11/24/17 05:23 [place] % (Auto) 10.4 % (0.0-7.3) H 11/24/17 05:23 Eos % (Auto) 0.2 % (0.0-4.3) 11/24/17 05:23 Baso % (Auto) 0.1 % (0.0-1.8) 11/24/17 05:23 Lymph # 1.0 K/mm3 (1.2-5.4) L 11/24/17 05:23 [place] # 0.9 K/mm3 (0.0-0.8) H 11/24/17 05:23 Eos # 0.0 K/mm3 (0.0-0.4) 11/24/17 05:23 Baso # 0.0 K/mm3 (0.0-0.1) 11/24/17 05:23 Seg Neutrophils % 77.4 % (40.0-70.0) H 11/24/17 05:23 Seg Neutrophils # 6.5 K/mm3 (1.8-7.7) 11/24/17 05:23 PT 13.5 Sec. (12.2-14.9) 11/23/17 14:54 INR 0.98 (0.87-1.13) 11/23/17 14:54 APTT 28.1 Sec. (24.2-36.6) 11/23/17 14:54 Sodium 137 mmol/L (137-145) 11/28/17 04:13 Potassium 4.0 mmol/L (3.6-5.0) 11/28/17 04:13 Chloride 103.9 mmol/L (98-107) 11/28/17 04:13 Carbon Dioxide 21 mmol/L (22-30) L 11/28/17 04:13 Anion Gap 16 mmol/L 11/28/17 04:13 BUN 16 mg/dL (9-20) 11/28/17 04:13 Creatinine 0.5 mg/dL (0.8-1.5) L 11/28/17 04:13 Estimated GFR > 60 ml/min 11/28/17 04:13 BUN/Creatinine Ratio 32 % 11/28/17 04:13 Glucose 102 mg/dL (75-100) H 11/28/17 04:13 POC Glucose 137 (70-105) H 11/24/17 12:22 Calcium 7.2 mg/dL (8.4-10.2) L 11/28/17 04:13 Total Bilirubin 0.40 mg/dL (0.1-1.2) 11/24/17 05:23 AST 21 units/L (5-40) 11/24/17 05:23 ALT 27 units/L (7-56) 11/24/17 05:23 Alkaline Phosphatase 61 units/L (35-129) 11/24/17 05:23 Total Protein 5.4 g/dL (6.3-8.2) L 11/24/17 05:23 Albumin 3.2 g/dL (3.9-5) L 11/24/17 05:23 Albumin/Globulin Ratio 1.5 % 11/24/17 05:23 Blood Type A NEGATIVE 11/23/17 14:54 Antibody Screen Negative 11/23/17 14:54
[2017-11-29] MEDS: MEGACE PO SCH (12:30)
[2017-11-29] MEDS: LOVENOX SUB-Q SCH (12:31)
[2017-11-29] MEDS: ARTANE PO SCH ×2 (12:31→23:52)
[2017-11-29] MEDS: COLACE PO SCH ×2 (12:34→23:56)
[2017-11-29] MEDS: CLARITIN PO SCH (12:36)
--- NOTE | 2017-11-29 13:28 | Progress Note ---
Assessment and Plan s/p IM nail right femur doing ok continue PT and observation Subjective Date of service: 11/29/17 Interval history: resting comfortably in bed, sitter in room... Objective Vital signs: Vital Signs - 12hr 11/29/17 11/29/17 11/29/17 04:10 07:38 09:08 Temperature 98.0 F 98.2 F Pulse Rate 94 H 95 H Pulse Rate [ 79 Anterior Bilateral Upper Lobe] Respiratory 20 Rate Respiratory 16 Rate [Anterior Bilateral Upper Lobe] Blood Pressure 125/77 121/66 [Left] O2 Sat by Pulse 95 99 Oximetry 11/29/17 11:30 Temperature 98.6 F Pulse Rate 90 Pulse Rate [ Anterior Bilateral Upper Lobe] Respiratory 18 Rate Respiratory Rate [Anterior Bilateral Upper Lobe] Blood Pressure 124/64 [Left] O2 Sat by Pulse 98 Oximetry Narrative Exam: right LE - moderate swelling, no erythema/drainage... - Labs CBC & BMP: 11/29/17 08:19 11/28/17 04:13 Labs: Abnormal lab results 11/29/17 Range/Units 08:19 RBC 3.37 L (3.65-5.03) M/mm3 Hgb 10.7 L (11.8-15.2) gm/dl Hct 31.5 L (35.5-45.6) % RDW 15.6 H (13.2-15.2) %
[2017-11-29] MEDS: SODIUM CHLORIDE FLUSH SYRINGE 10 ML IV SCH ×2 (18:33→22:00)
[2017-11-29] MEDS: NACL 0.9% 1000 ML 1,000 ML IV SCH (22:44)
[2017-11-29] MEDS: ARICEPT PO SCH (23:52)
[2017-11-29] MEDS: FLOMAX PO SCH (23:53)
[2017-11-30 06:40] LABS: Hematocrit 30.2 % (35.5-45.6); Hemoglobin 10.2 gm/dl (11.8-15.2); Mean Corpuscular HGB Conc 34 % (32-34); Mean Corpuscular Hemoglobin 32 pg (28-32); Mean Corpuscular Volume 94 fl (84-94); Platelet Count 319 K/mm3 (140-440); Red Blood Count 3.22 M/mm3 (3.65-5.03); Red Cell Distribution Width 15.4 % (13.2-15.2)
[2017-11-30 07:05] LABS: BUN/Creatinine Ratio 28; Blood Urea Nitrogen 14 mg/dL (9-20); Calcium 7.2 mg/dL (8.4-10.2); Hemolysis Index 0
[2017-11-30] MEDS: NACL 0.9% 1000 ML 1,000 ML IV SCH ×2 (08:39→21:57)
[2017-11-30] MEDS: SPIRIVA IH SCH (09:45)
[2017-11-30] MEDS: CLARITIN PO SCH (11:33)
[2017-11-30] MEDS: COLACE PO SCH ×2 (11:33→21:56)
[2017-11-30] MEDS: ARTANE PO SCH ×2 (11:35→21:56)
[2017-11-30] MEDS: LOVENOX SUB-Q SCH (11:36)
[2017-11-30] MEDS: MEGACE PO SCH (11:42)
[2017-11-30] MEDS: SODIUM CHLORIDE FLUSH SYRINGE 10 ML IV SCH ×2 (11:43→21:57)
--- NOTE | 2017-11-30 16:08 | Progress Note ---
Assessment and Plan /Right intertrochanteric femur fracture. Orthopedic surgeon consulted. Surgery -intramedullary nail right femur done by Dr. Page on 11/26/17. Pain is under control Physical therapy ordered /Schizophrenia. He is from [facility]. Continue 1013 status, 1:1 sitter . Psych reconsulted /Moderate to severe malnutrition. Dietary consulted. /Weight loss. Will need outpatient follow up. Follow dietary recommendations /Body Lice infestation seen on hair on head, pubic hair, sheets. Permethrin. Contact isolation. I discussed with ID Physician. Also consulted ID Nurse /DVT prophylaxis with Lovenox /Discussed with his brother, Dr. Hawley, Physician few days ago by prior attending. Discussed disposition with case management. Pending placement and PT eval Hospitalist Physical Gen appearance: Not in acute distress, cachetic HEENT: Normocephalic, atraumatic Neck: supple, no JVD Lungs: Clear to auscultation bilaterally, no crackles , no wheeze Heart: S1 and S2 regular, no murmurs, rubs or gallop Abdomen: soft, non tender, non distended, normal bowel sounds Ext: Tender right hip,dressing over right hip, no clubbing, no cyanosis Neuro: Awake,alert, moves all extremities, Psych: Cooperative, no insight for reality Subjective Date of service: 11/30/17 Interval history: Patient with right femur fracture after fall, Had surgery on 11/26 Diagnosed with body lice, treated with permethrin Patient with sitter at bedside Objective - Constitutional Vitals: Vital Signs - 12hr 11/30/17 11/30/17 08:00 09:45 Temperature 98.1 F Pulse Rate 67 Pulse Rate [ 80 Anterior Bilateral Upper Lobe] Respiratory 18 Rate Respiratory 16 Rate [Anterior Bilateral Upper Lobe] Blood Pressure 118/78 [Left] - Labs CBC & Chem 7: 11/30/17 06:24 11/30/17 06:24 Labs: Abnormal lab results 11/30/17 11/30/17 Range/Units 06:24 06:24 RBC 3.22 L (3.65-5.03) M/mm3 Hgb 10.2 L (11.8-15.2) gm/dl Hct 30.2 L (35.5-45.6) % RDW 15.4 H (13.2-15.2) % Creatinine 0.5 L (0.8-1.5) mg/dL Calcium 7.2 L (8.4-10.2) mg/dL
[2017-11-30] MEDS: PERCOCET 5/325 PO PRN (21:56)
[2017-11-30] MEDS: FLOMAX PO SCH (21:57)
[2017-11-30] MEDS: ARICEPT PO SCH (21:57)
[2017-12-01] MEDS: SPIRIVA IH SCH (09:40)
[2017-12-01] MEDS: MEGACE PO SCH (12:00)
[2017-12-01] MEDS: ARTANE PO SCH ×2 (12:00→22:39)
[2017-12-01] MEDS: LOVENOX SUB-Q SCH (12:01)
[2017-12-01] MEDS: CLARITIN PO SCH (12:01)
[2017-12-01] MEDS: COLACE PO SCH ×2 (12:01→22:39)
[2017-12-01] MEDS: SODIUM CHLORIDE FLUSH SYRINGE 10 ML IV SCH (12:02)
--- NOTE | 2017-12-01 14:46 | Progress Note ---
Subjective - Reason for Consult Consult date: 12/01/17 Reason for consult: Psychiatric Follow-up Evaluation - Chief Complaint Chief complaint: Grady is a 62 year old white male who was consulted for psychiatric services due to psychosis. He has a PPHx of Schizophrenia. Today, he states " I got a divorce. I got the voice. Do you see the souvenir you left me." Patient continues to be grossly psychotic. During the assessment patient is responding to internal stimuli. He continues to have selective compliance in regards to medication. Mental Status Exam - Vital signs Last Vital Signs Temp 97.4 F L 12/01/17 12:30 Pulse 105 H 12/01/17 12:30 Resp 16 12/01/17 12:30 BP 102/64 12/01/17 12:30 Pulse Ox 97 12/01/17 12:30 - Exam Narrative exam: Mental Status Exam General Appearance: Poorly groomed-unkempt Eye Contact: Intermittent Orientation: Alert and oriented x1 ( person) Attitude/Behavior: Uncooperative Sensorium: Distracted Psychomotor & Musculoskeletal Activity: WNL Mood: Anxious Affect: Inappropriate Speech/Language: Nonsensical Thought Processes: Disorganized Thought Content: Impoverished Perception: Unable to obtain Concentration/Attention: Impaired Suicidal Ideations/Plan: Unable to obtain Homicidal Ideations/Plan: Unable to obtain Assessment and Plan Impression: Patient is a 62 year old WM who presents with psychosis. He has a PPHx of Schizophrenia. Today, patient presents disorganized and nonsensical. Patient continues to answer questions inappropriately. Patient is refusing medications. DDx: Schizophrenia Plan: 1. Continue 1013 and reassess on 12/02/17. 2. Will encourage compliance with medication. 3. Will assist with placement in regards to inpatient services. 4. Will continue to monitor.
--- NOTE | 2017-12-01 14:46 | Consultation ---
History of Present Illness - Reason for Consult Consult date: 11/30/17 Reason for consult: Initial Psychiatric Evaluation - Chief Complaint Chief complaint: "Silvestre Mary." - History of Present Psychiatric Illness Grady is a 62 year old white male who was consulted for psychiatric services due to psychosis. He has a PPHx of Schizophrenia. During the initial psychiatric evaluation provider is unable to obtain information. Patient is grossly psychotic. Patient is exhibiting inappropriate hand gestures, such as throwing pillows and pretending/attempting to masturbate. Sitter is at bedside. Per sitter patient is unable to have conversation with others. Patient answer questions inappropriately. Allergies: See allergy list. Past Psychiatric History: Schizophrenia ( unknown) ; Unable to obtain Past Psychiatric Medication Trials: Unable to obtain History of Trauma/Abuse: Unable to obtain Social History: Unable to obtain Family History: Unable to obtain Medications and Allergies Allergies Allergy/AdvReac Type Severity Reaction Status Date / Time benztropine [From Cogentin] AdvReac Rash Verified 11/23/17 13:56 corticorelin ovine triflutate AdvReac Rash Verified 11/23/17 14:00 haloperidol [From Haldol] AdvReac Swelling Verified 11/23/17 14:00 magnesium AdvReac Rash Verified 11/23/17 13:56 Penicillins AdvReac Rash Verified 11/23/17 14:00 phenytoin [From Dilantin] AdvReac Rash Verified 11/23/17 14:00 procaine [From Novocain] AdvReac Rash Verified 11/23/17 14:00 Sulfa (Sulfonamide AdvReac Rash Verified 11/23/17 14:00 Antibiotics) Home Medications Medication Instructions Recorded Confirmed Last Taken Type Albuterol Sulfate [Ventolin Hfa] 2 puff IH Q6H PRN 11/23/17 11/23/17 11/22/17 History Aspirin [Adult Low Dose Aspirin EC] 81 mg PO DAILY 11/23/17 11/23/17 11/23/17 History Cholecalciferol Vit D3 [Vitamin D3] 2,000 unit PO QDAY 11/23/17 11/23/17 History Divalproex Sodium [Depakote] 500 mg PO BID 11/23/17 11/23/17 11/23/17 09:00 History Donepezil HCl 10 mg PO HS 11/23/17 11/23/17 11/22/17 History LORazepam [Ativan] 1 mg PO BID PRN 11/23/17 11/23/17 11/22/17 History Loperamide [Imodium] 2 mg PO Q6H PRN 11/23/17 11/23/17 Unknown History Loratadine [Claritin] 10 mg PO DAILY 11/23/17 11/23/17 Unknown History Mag Hydrox/Aluminum Hyd/Simeth 30 ml PO Q2H PRN 11/23/17 11/23/17 Unknown History [Antacid Anti-Gas Liquid] Magnesium Hydroxide [Milk of 30 ml PO DAILY PRN 11/23/17 11/23/17 Unknown History Magnesia] Megestrol [Megace] 400 mg PO QAM 11/23/17 11/23/17 11/23/17 History QUEtiapine [SEROquel] 200 mg PO HS 11/23/17 11/23/17 11/22/17 History QUEtiapine [SEROquel] 200 mg PO HS 11/23/17 11/23/17 11/22/17 History Simvastatin [Zocor] 10 mg PO HS 11/23/17 11/23/17 11/22/17 History Tamsulosin [Flomax] 0.4 mg PO HS 11/23/17 11/23/17 11/22/17 History Tiotropium Louann [Spiriva] 18 mcg IH QA 11/23/17 11/23/17 11/23/17 History Trihexyphenidyl [Artane Tab] 2 mg PO BID 11/23/17 11/23/17 11/23/17 09:00 History Ziprasidone Mesylate [Geodon] 30 mg IM Q8H PRN 11/23/17 11/23/17 11/19/17 History cloNIDine [Catapres] 0.1 mg PO Q8H PRN 11/23/17 11/23/17 Unknown History diphenhydrAMINE [Benadryl CAP] 25 mg PO Q6HR PRN 11/23/17 11/23/17 Unknown History hydrOXYzine PAMOATE [Vistaril] 25 mg PO Q8H PRN 11/23/17 11/23/17 Unknown History traZODone [Desyrel] 25 mg PO HS PRN 11/23/17 11/23/17 11/22/17 History Active Meds: Active Medications Acetaminophen (Tylenol) 650 mg PO Q4H PRN PRN Reason: Pain MILD(1-3)/Fever >100.5/LOREDO Last Admin: 11/29/17 12:32 Dose: 650 mg Albuterol (Proventil) 2.5 mg IH Q4HRT PRN PRN Reason: Shortness Of Breath Clonidine HCl (Catapres) 0.1 mg PO Q8H PRN PRN Reason: Blood Pressure Diphenhydramine HCl (Benadryl) 25 mg PO Q6HR PRN PRN Reason: Extrapyramidal Effects Last Admin: 11/24/17 23:35 Dose: 25 mg Divalproex Sodium (Depakote Dr) 500 mg PO BID [facility] Last Admin: 12/01/17 12:00 Dose: 500 mg Docusate Sodium (Colace) 100 mg PO BID [facility] Last Admin: 12/01/17 12:01 Dose: 100 mg Donepezil HCl (Aricept) 10 mg PO HS [facility] Last Admin: 11/30/17 21:57 Dose: 10 mg Enoxaparin Sodium (Lovenox) 40 mg SUB-Q QDAY [facility] Last Admin: 12/01/17 12:01 Dose: 40 mg Hydromorphone HCl (Dilaudid) 0.5 mg IV Q3H PRN PRN Reason: Pain , Severe (7-10) Last Admin: 11/25/17 05:34 Dose: 0.5 mg Hydroxyzine Pamoate (Vistaril) 25 mg PO Q8H PRN PRN Reason: Anxiety Sodium Chloride (Nacl 0.9% 1000 Ml) 1,000 mls @ 100 mls/hr IV DIRECT [facility] Last Admin: 11/30/17 21:57 Dose: 100 mls/hr Loperamide HCl (Imodium) 2 mg PO Q6H PRN PRN Reason: Diarrhea Loratadine (Claritin) 10 mg PO DAILY [facility] Last Admin: 12/01/17 12:01 Dose: 10 mg Lorazepam (Ativan) 1 mg PO BID PRN PRN Reason: Anxiety Megestrol Acetate (Megace) 400 mg PO QAM [facility] Last Admin: 12/01/17 12:00 Dose: 400 mg Morphine Sulfate (Morphine) 2 mg IV Q4H PRN PRN Reason: Pain, Moderate (4-6) Ondansetron HCl (Zofran) 4 mg IV Q8H PRN PRN Reason: Nausea And Vomiting Oxycodone/Acetaminophen (Percocet 5/325) 1 tab PO Q6H PRN PRN Reason: Pain, Moderate (4-6) Last Admin: 11/30/17 21:56 Dose: 1 tab Polyethylene Glycol (Miralax 3350) 17 gm PO QDAY PRN PRN Reason: Constipation Quetiapine Fumarate (Seroquel) 200 mg PO [facility] Last Admin: 11/30/17 21:57 Dose: 200 mg Sodium Chloride (Sodium Chloride Flush Syringe 10 Ml) 10 ml IV BID [facility] Last Admin: 12/01/17 12:02 Dose: 10 ml Sodium Chloride (Sodium Chloride Flush Syringe 10 Ml) 10 ml IV PRN PRN PRN Reason: LINE FLUSH Tamsulosin HCl (Flomax) 0.4 mg PO [facility] Last Admin: 11/30/17 21:57 Dose: 0.4 mg Tiotropium Louann (Spiriva) 1 puff IH QAM [facility] Last Admin: 12/01/17 09:40 Dose: 1 puff Trazodone HCl (Desyrel) 25 mg PO HS PRN PRN Reason: Sleep Trihexyphenidyl HCl (Artane) 2 mg PO BID [facility] Last Admin: 12/01/17 12:00 Dose: 2 mg Ziprasidone (Geodon) 30 mg IM Q8H PRN PRN Reason: Agitation Last Admin: 11/30/17 23:56 Dose: 30 mg Zolpidem Tartrate (Ambien) 5 mg PO QHS PRN PRN Reason: Insomnia Last Admin: 11/24/17 01:19 Dose: 5 mg Mental Status Exam - Vital signs Last Vital Signs Temp 97.4 F L 12/01/17 12:30 Pulse 105 H 12/01/17 12:30 Resp 16 12/01/17 12:30 BP 102/64 12/01/17 12:30 Pulse Ox 97 12/01/17 12:30 - Exam Narrative exam: Mental Status Exam General Appearance: Poorly groomed-unkempt Eye Contact: Intermittent to poor Orientation: Alert and oriented x1 ( person) Attitude/Behavior: Uncooperative Sensorium: Distracted Psychomotor & Musculoskeletal Activity: Agitated Mood: Anxious Affect: Inappropriate Speech/Language: Nonsensical Thought Processes: Disorganized Thought Content: Impoverished Perception: Unable to obtain Concentration/Attention: Impaired Suicidal Ideations/Plan: Unable to obtain Homicidal Ideations/Plan: Unable to obtain Results Result Diagrams: 11/30/17 06:24 11/30/17 06:24 All other labs normal. Assessment and Plan Assessment and plan: Assessment and plan: Impression: Patient is a 62 year old WM who presents with psychosis. He has a PPHx of Schizophrenia. Provider unable to fully assess patient secondary to psychosis. Patient is disorganzied and nonsensical. He appears internally preoccupied. DDx: Schizophrenia Plan: 1. Continue 1013 and reassess on 12/01/17. 2. Will encourage compliance with medication. Will change Depakote to liquid form. 3. Will assist with placement in regards to inpatient services. 4. Will continue to monitor.
--- NOTE | 2017-12-01 17:40 | Progress Note ---
Assessment and Plan /Right intertrochanteric femur fracture. Orthopedic surgeon consulted. Surgery -intramedullary nail right femur done by Dr. Page on 11/26/17. Pain is under control Physical therapy ordered /Schizophrenia. He is from [facility]. Continue 1013 status, 1:1 sitter . Psych reconsulted /Moderate to severe malnutrition. Dietary consulted. /Weight loss. Will need outpatient follow up. Follow dietary recommendations /Body Lice infestation seen on hair on head, pubic hair, sheets. s/p Permethrin x1, will repeat . on Contact isolation. /DVT prophylaxis with Lovenox /Discussed with his brother, Dr. Hawley, Physician few days ago by prior attending. Discussed disposition with case management. Pending placement and PT eval Hospitalist Physical Gen appearance: Not in acute distress, cachetic HEENT: Normocephalic, atraumatic Neck: supple, no JVD Lungs: Clear to auscultation bilaterally, no crackles , no wheeze Heart: S1 and S2 regular, no murmurs, rubs or gallop Abdomen: soft, non tender, non distended, normal bowel sounds Ext: Tender right hip,dressing over right hip, no clubbing, no cyanosis Neuro: Awake,alert, moves all extremities, Psych: Cooperative, no insight for reality Subjective Date of service: 12/01/17 Interval history: Patient with right femur fracture after fall, Had surgery on 11/26 Patient with sitter at bedside Objective - Constitutional Vitals: Vital Signs - 12hr 12/01/17 12/01/17 12/01/17 07:29 07:32 09:40 Temperature 98.1 F Pulse Rate 78 85 Pulse Rate [ 80 Anterior Bilateral Upper Lobe] Respiratory 15 Rate Respiratory 16 Rate [Anterior Bilateral Upper Lobe] Blood Pressure 121/70 O2 Sat by Pulse 97 97 Oximetry 12/01/17 12:30 Temperature 97.4 F L Pulse Rate 105 H Pulse Rate [ Anterior Bilateral Upper Lobe] Respiratory 16 Rate Respiratory Rate [Anterior Bilateral Upper Lobe] Blood Pressure 102/64 O2 Sat by Pulse 97 Oximetry - Labs CBC & Chem 7: 11/30/17 06:24 11/30/17 06:24
[2017-12-01] MEDS: ARICEPT PO SCH (22:39)
[2017-12-01] MEDS: FLOMAX PO SCH (22:39)
[2017-12-02] MEDS: LOVENOX SUB-Q SCH ×2 (08:27→10:00)
[2017-12-02] MEDS: CLARITIN PO SCH ×2 (08:27→10:00)
[2017-12-02] MEDS: MEGACE PO SCH ×2 (08:27→10:00)
[2017-12-02] MEDS: COLACE PO SCH ×3 (08:27→22:07)
[2017-12-02] MEDS: ARTANE PO SCH ×3 (08:28→22:07)
[2017-12-02] MEDS: SPIRIVA IH SCH (10:22)
[2017-12-02] MEDS ORDERED: ACTICIN TP ONE (13:35)
--- NOTE | 2017-12-02 16:35 | Progress Note ---
Assessment and Plan /Right intertrochanteric femur fracture. Orthopedic surgeon consulted. Surgery -intramedullary nail right femur done by Dr. Page on 11/26/17. Pain is under control Physical therapy ordered /Schizophrenia. He is from [facility]. Continue 1013 status, 1:1 sitter . Psych reconsulted /Moderate to severe malnutrition. Dietary consulted. /Weight loss. Will need outpatient follow up. Follow dietary recommendations /Body Lice infestation seen on hair on head, pubic hair, sheets. s/p Permethrin x1, plan to repeat dose today . on Contact isolation. /DVT prophylaxis with Lovenox /Discussed with his brother, Dr. Hawley, Physician few days ago by prior attending. Discussed disposition with case management. Plan to d/c home with brothers Hospitalist Physical Gen appearance: Not in acute distress, cachetic HEENT: Normocephalic, atraumatic Neck: supple, no JVD Lungs: Clear to auscultation bilaterally, no crackles , no wheeze Heart: S1 and S2 regular, no murmurs, rubs or gallop Abdomen: soft, non tender, non distended, normal bowel sounds Ext: Tender right hip,dressing over right hip, no clubbing, no cyanosis Neuro: Awake,alert, moves all extremities, Psych: Cooperative, no insight for reality Subjective Date of service: 12/02/17 Interval history: Patient with right femur fracture after fall, Had surgery on 11/26 Patient with sitter at bedside Objective - Constitutional Vitals: Vital Signs - 12hr 12/02/17 12/02/17 12/02/17 07:49 10:23 10:24 Temperature 97.7 F Pulse Rate 78 Pulse Rate [ 106 H 106 H Anterior Bilateral Upper Lobe] Pulse Rate [ 106 H Throughout] Respiratory 18 Rate Respiratory 20 20 Rate [Anterior Bilateral Upper Lobe] Respiratory 20 Rate [ Throughout] Blood Pressure 127/75 O2 Sat by Pulse 98 Oximetry 12/02/17 12/02/17 12:09 16:10 Temperature 98.1 F 98.5 F Pulse Rate 99 H 91 H Pulse Rate [ Anterior Bilateral Upper Lobe] Pulse Rate [ Throughout] Respiratory 16 16 Rate Respiratory Rate [Anterior Bilateral Upper Lobe] Respiratory Rate [ Throughout] Blood Pressure 116/70 123/74 O2 Sat by Pulse 98 99 Oximetry - Labs CBC & Chem 7: 11/30/17 06:24 11/30/17 06:24
[2017-12-02] MEDS: ARICEPT PO SCH (22:07)
[2017-12-02] MEDS: FLOMAX PO SCH (22:07)
[2017-12-03] MEDS: CLARITIN PO SCH (09:44)
[2017-12-03] MEDS: ARTANE PO SCH ×2 (09:44→22:58)
[2017-12-03] MEDS: COLACE PO SCH ×2 (09:44→22:58)
[2017-12-03] MEDS: MEGACE PO SCH (09:45)
[2017-12-03] MEDS: LOVENOX SUB-Q SCH (09:45)
[2017-12-03] MEDS: SPIRIVA IH SCH (09:49)
[2017-12-03] MEDS: SODIUM CHLORIDE FLUSH SYRINGE 10 ML IV SCH (10:00)
--- NOTE | 2017-12-03 15:36 | Progress Note ---
Assessment and Plan /Right intertrochanteric femur fracture. Orthopedic surgeon consulted. Surgery -intramedullary nail right femur done by Dr. Page on 11/26/17. Pain is under control Physical therapy ordered /Schizophrenia. He is from [facility]. Continue 1013 status, 1:1 sitter . Psych reconsulted /Moderate to severe malnutrition. Dietary consulted. /Weight loss. Will need outpatient follow up. Follow dietary recommendations /Body Lice infestation seen on hair on head, pubic hair, sheets. s/p Permethrin x2 . on Contact isolation. /DVT prophylaxis with Lovenox /Discussed with his brother, Dr. Hawley, Physician few days ago by prior attending. Discussed disposition with case management. Plan to d/c home with brothers Hospitalist Physical Gen appearance: Not in acute distress, cachetic HEENT: Normocephalic, atraumatic Neck: supple, no JVD Lungs: Clear to auscultation bilaterally, no crackles , no wheeze Heart: S1 and S2 regular, no murmurs, rubs or gallop Abdomen: soft, non tender, non distended, normal bowel sounds Ext: Tender right hip,dressing over right hip, no clubbing, no cyanosis Neuro: Awake,alert, moves all extremities, Psych: Cooperative, no insight for reality Subjective Date of service: 12/03/17 Interval history: Patient with right femur fracture after fall, Had surgery on 11/26 Patient with sitter at bedside Objective - Constitutional Vitals: Vital Signs - 12hr 12/03/17 12/03/17 12/03/17 07:10 08:16 12:52 Temperature 98.6 F 98.2 F 98.1 F Pulse Rate 85 116 H 91 H Respiratory 18 20 20 Rate Blood Pressure 138/78 99/65 107/64 [Left] O2 Sat by Pulse 97 Oximetry - Labs CBC & Chem 7: 11/30/17 06:24 11/30/17 06:24
[2017-12-03] MEDS: ARICEPT PO SCH (22:58)
[2017-12-03] MEDS: FLOMAX PO SCH (22:58)
[2017-12-04] MEDS: SODIUM CHLORIDE FLUSH SYRINGE 10 ML IV SCH ×4 (00:59→21:50)
[2017-12-04] MEDS: ARTANE PO SCH ×2 (09:37→21:48)
[2017-12-04] MEDS: COLACE PO SCH ×2 (09:37→21:49)
[2017-12-04] MEDS: LOVENOX SUB-Q SCH (09:38)
[2017-12-04] MEDS: CLARITIN PO SCH (09:38)
[2017-12-04] MEDS: MEGACE PO SCH (09:38)
--- NOTE | 2017-12-04 10:19 | Discharge Summary ---
Providers - Providers Date of Admission: 11/23/17 21:27 Date of discharge: 12/05/17 Attending physician: VIMAL POTTER 11/23/17 21:30 Consult to Physician [CONS] Routine Comment: Consulting Provider: JOSE PAGE Physician Instructions: Reason For Exam: Hip fx 11/24/17 07:44 Consult to Mental Health [CONS] Stat Reason For Exam: behavioral health Place consult to:: psych Notified:: yes Phone number called:: [phone] Was contact made?: Yes If yes, spoke with:: gabe Mendoza Time called:: 08:01 11/24/17 07:51 Consult to Mental Health [CONS] Routine Reason For Exam: Schizophrenia active Place consult to:: PSYCH Notified:: PSYCH Phone number called:: [phone] Was contact made?: Yes If yes, spoke with:: PATI Time called:: 16:12 Comment:: CONSULT COMPLETED 11/25/17 08:27 Consult to Infection Control Nurse [CONS] Routine Reason For Exam: head lice infestation 11/25/17 16:01 Consult to Dietitian/Nutrition [CONS] Routine Physician Instructions: Reason For Exam: Reason for Consult: Malnutrition 11/29/17 11:25 Physical Therapy Evaluation and Treat [CONS] Routine Comment: Reason For Exam: post ORIF for right hip fracture 11/29/17 16:55 Consult to Mental Health [CONS] Routine Reason For Exam: schizophrenia Place consult to:: Psych Notified:: yes Primary care physician: MOVIE [employer] OPERATOR Hospitalization Condition: Fair Hospital course: Discharge diagnosis and management: /Right intertrochanteric femur fracture. Orthopedic surgeon consulted. Surgery -intramedullary nail right femur done by Dr. Page on 11/26/17. Pain is under control Physical therapy recommended roller walker /Schizophrenia. He is from [facility]. Continue 1013 status, 1:1 sitter . Psych reconsulted /Moderate to severe malnutrition. Dietary consulted. /Weight loss. Will need outpatient follow up. Follow dietary recommendations /Body Lice infestation seen on hair on head, pubic hair, sheets. s/p Permethrin x2 . on Contact isolation. /DVT prophylaxis with Lovenox Discussed disposition with case management. Plan to d/c home with brothers Hospitalist Physical Gen appearance: Not in acute distress, cachetic HEENT: Normocephalic, atraumatic Neck: supple, no JVD Lungs: Clear to auscultation bilaterally, no crackles , no wheeze Heart: S1 and S2 regular, no murmurs, rubs or gallop Abdomen: soft, non tender, non distended, normal bowel sounds Ext: Tender right hip,dressing over right hip, no clubbing, no cyanosis Neuro: Awake,alert, moves all extremities, Psych: Cooperative, no insight for reality Disposition: DC-01 TO HOME OR SELFCARE Time spent for discharge: 32 minutes Core Measure Documentation - Palliative Care Palliative Care/ Comfort Measures: Not Applicable - Core Measures Any of the following diagnoses?: none Exam - Constitutional Vitals: Temp Pulse Resp BP Pulse Ox 98.2 F 81 20 117/71 96 12/04/17 07:52 12/04/17 07:52 12/04/17 07:52 12/04/17 07:52 12/04/17 04:05 Plan Activity: other (up with roller walker) Diet: regular Wound: per your surgeon's advice Durable Medical Equipment Needed Upon Discharge: Walker-Rolling Follow up with: PRIMARY CARE, [Primary Care Provider] - 3-5 Days Prescriptions: Albuterol Sulfate [Ventolin Hfa] 2 puff IH Q6H PRN 30 Days hfa.[email or web address] PRN Reason: Shortness Of Breath cloNIDine [Catapres] 0.1 mg PO Q8H PRN #90 tablet PRN Reason: Blood Pressure Divalproex Sodium [Depakote] 500 mg PO BID #60 tablet. Donepezil HCl 10 mg PO HS #30 tablet hydrOXYzine PAMOATE [Vistaril] 25 mg PO Q8H PRN #30 capsule PRN Reason: Anxiety LORazepam [Ativan] 1 mg PO BID PRN #20 tablet PRN Reason: Anxiety Megestrol [Megace] 400 mg PO QAM 14 Days oral.liqd oxyCODONE /ACETAMINOPHEN [Percocet 5/325 mg] 1 tab PO Q6H PRN #14 tablet PRN Reason: Pain, Moderate (4-6) Polyethylene Glycol 3350 [Miralax 3350] 17 gm PO QDAY PRN 14 Days powd.pack PRN Reason: Constipation QUEtiapine [SEROquel] 200 mg PO HS #14 tablet Simvastatin [Zocor] 10 mg PO HS #30 tablet Tamsulosin [Flomax] 0.4 mg PO HS #14 capsule Tiotropium Girard [Spiriva] 18 mcg IH QAM #14 cap.w.dev traZODone [Desyrel] 25 mg PO HS PRN #10 tablet PRN Reason: Sleep Trihexyphenidyl [Artane] 2 mg PO BID #10 tablet Ziprasidone Mesylate [Geodon] 30 mg IM Q8H PRN #10 vial PRN Reason: Agitation
[2017-12-04] MEDS: ATIVAN PO PRN (10:55)
[2017-12-04] MEDS: SPIRIVA IH SCH (14:19)
--- NOTE | 2017-12-04 15:12 | Progress Note ---
Subjective - Reason for Consult Consult date: 12/04/17 Reason for consult: Psychiatric Follow-up Evaluation - Chief Complaint Chief complaint: " I'm pretty good." Grady is a 62 year old white male who was consulted for psychiatric services due to psychosis. He has a PPHx of Schizophrenia. Today, he states " I'm doing pretty good. May I have a sandwich. " Patient appears to be less disorganized ( less) but psychotic. During the assessment provider is unable to follow conversation. Patient needs constant redirection. Patient is compliant with medication. No noted side effects. Per RNDacia, she spoke with patient's brother and he will be here on 12/05/17 in the evening to transport patient to [place], [place]. Mental Status Exam - Vital signs Last Vital Signs Temp 97.6 F 12/04/17 13:40 Pulse 86 12/04/17 13:40 Resp 20 12/04/17 13:40 BP 85/52 12/04/17 13:40 Pulse Ox 100 12/04/17 13:40 - Exam Narrative exam: Mental Status Exam General Appearance: Poorly groomed-unkempt Eye Contact: Intermittent Orientation: Alert and oriented x1 ( person) Attitude/Behavior: Cooperative but confused Sensorium: Distracted Psychomotor & Musculoskeletal Activity: WNL Mood: Anxious Affect: Inappropriate/ Constricted Speech/Language: Nonsensical Thought Processes: Disorganized-less Thought Content: Impoverished Perception: Unable to obtain Concentration/Attention: Impaired concentration/attention Suicidal Ideations/Plan: Unable to obtain Homicidal Ideations/Plan: Unable to obtain Assessment and Plan Impression: Patient is a 62 year old WM who presents with psychosis. He has a PPHx of Schizophrenia. Today, patient presents disorganized and nonsensical. Patient continues to answer questions inappropriately. Needs constant redirection. Provider unable to obtain information secondary to impoverished thought content. Patient will be discharged on 12/05/17 to his brother, so that he is closer to him in [place], [place]. DDx: Schizophrenia Plan: 1. Continue to monitor and reassess on 12/05/17. 2. Will encourage compliance with medication. 3. Order Depakote level to ensure therapeutic range.
[2017-12-04] MEDS: FLOMAX PO SCH (21:49)
[2017-12-04] MEDS: ARICEPT PO SCH (21:49)
--- NOTE | 2017-12-05 02:08 | Progress Note ---
Assessment and Plan /Right intertrochanteric femur fracture. Orthopedic surgeon consulted. Surgery -intramedullary nail right femur done by Dr. Page on 11/26/17. Pain is under control Physical therapy ordered /Schizophrenia. He is from [facility]. Continue 1013 status, 1:1 sitter . Psych reconsulted /Moderate to severe malnutrition. Dietary consulted. /Weight loss. Will need outpatient follow up. Follow dietary recommendations /Body Lice infestation seen on hair on head, pubic hair, sheets. s/p Permethrin x2 . on Contact isolation. /DVT prophylaxis with Lovenox /Discussed with his brother, Dr. Hawley, Physician few days ago by prior attending. Discussed disposition with case management. Plan to d/c home with brothers. Per RNDacia, she spoke with patient's brother and he will be here on 12/05/17 in the evening to transport patient to [place], [place]. Hospitalist Physical Gen appearance: Not in acute distress, cachetic HEENT: Normocephalic, atraumatic Neck: supple, no JVD Lungs: Clear to auscultation bilaterally, no crackles , no wheeze Heart: S1 and S2 regular, no murmurs, rubs or gallop Abdomen: soft, non tender, non distended, normal bowel sounds Ext: Tender right hip,dressing over right hip, no clubbing, no cyanosis Neuro: Awake,alert, moves all extremities, Psych: Cooperative, no insight for reality Subjective Date of service: 12/04/17 Interval history: Patient with right femur fracture after fall, Had surgery on 11/26 Patient with sitter at bedside Objective - Constitutional Vitals: Vital Signs - 12hr 12/04/17 21:06 Temperature 98.0 F Pulse Rate 84 Respiratory 20 Rate Blood Pressure 126/68 O2 Sat by Pulse 100 Oximetry - Labs CBC & Chem 7: 11/30/17 06:24 11/30/17 06:24 Labs: Abnormal lab results 12/04/17 Range/Units 17:03 Valproic Acid 44.1 L (50-100) ug/mL
[2017-12-05 07:12] VITALS: BP 124/70
[2017-12-05] MEDS: LOVENOX SUB-Q SCH (09:32)
[2017-12-05] MEDS: COLACE PO SCH (09:32)
[2017-12-05] MEDS: MEGACE PO SCH (09:33)
[2017-12-05] MEDS: ARTANE PO SCH (09:33)
[2017-12-05] MEDS: ATIVAN PO PRN ×2 (09:33→14:25)
[2017-12-05] MEDS: CLARITIN PO SCH (09:33)
[2017-12-05] MEDS: SODIUM CHLORIDE FLUSH SYRINGE 10 ML IV SCH (09:34)
[2017-12-05] MEDS: PERCOCET 5/325 PO PRN (14:25)
[2017-12-05] MEDS ORDERED: ATIVAN PO PRN (14:38)
[2017-12-05] MEDS: SPIRIVA IH SCH (15:36)
== END 2017-12-05 15:00 | disposition home or self-care (01) | DRG 480 ==
LOC: ED 13:31 → 3B-SURG 21:27 → 3A 12-04 16:59
PROVIDERS: ADMIT Internal Medicine; ATTEND Internal Medicine
PROC: 0QS636Z Reposition Right Upper Femur with Intramedullary Internal Fixation Device, Percutaneous Approach (ICD-10-PCS; principal; 2017-11-26)
DX: S72.141A Displaced intertrochanteric fracture of right femur, initial encounter for closed fracture (principal); E43 Unspecified severe protein-calorie malnutrition; Z68.1 Body mass index [BMI] 19.9 or less, adult; J44.9 Chronic obstructive pulmonary disease, unspecified; I10 Essential (primary) hypertension; N40.0 Benign prostatic hyperplasia without lower urinary tract symptoms; F20.9 Schizophrenia, unspecified; B85.1 Pediculosis due to Pediculus humanus corporis; W01.0XXA Fall on same level from slipping, tripping and stumbling without subsequent striking against object, initial encounter; Y93.89 Activity, other specified; Y92.89 Other specified places as the place of occurrence of the external cause; Y99.8 Other external cause status
CPT/HCPCS: 36415; 71046; 80048; 80053; 80164; 82962; 85025; 85027; 85610; 85730; 86850; 86900; 86901; 94760; 96374; 96375; C1713; C1769; J1170; J1650; J2250; J2270; J2370; J2405; J2704; J3010; J3370; J3486; J7030